=== PATIENT | female | born 1955 | race Caucasian/White ===

== ENCOUNTER → 2017-12-05 | Outpatient (REF) | payer OTHER ==
[2017-12-08 14:12] LABS: HPV HYBRID CAPTURE II Negative (Negative)
== END ==
LOC: M SFHCWAGY 15:35
DX: Z12.4 Encounter for screening for malignant neoplasm of cervix (principal)
CPT/HCPCS: G0123

== ENCOUNTER → 2017-12-05 | Outpatient (CLI) | payer OTHER | LOC: M WHC 15:05 | DX: Z12.31 Encounter for screening mammogram for malignant neoplasm of breast (principal); Z78.0 Asymptomatic menopausal state | CPT/HCPCS: 77067 ==

== ENCOUNTER → 2018-11-13 | Outpatient (REF) | payer MEDICARE, OTHER ==
[2018-11-13 18:31] LABS: ALBUMIN 3.9 GM/DL (3.2-5.2); ALT/SGPT 17 U/L (12-78); BILIRUBIN,TOTAL 0.5 MG/DL (0.2-1.0); BLOOD UREA NITROGEN 20 MG/DL (7-18); CARBON DIOXIDE LEVEL 27 MEQ/L (21-32); CHLORIDE LEVEL 107 MEQ/L (98-107); CHOLESTEROL LEVEL 237 MG/DL (<200); CHOLESTEROL RISK RATIO 3.885 (<5); CREATININE FOR GFR 0.75 MG/DL (0.55-1.30); GLOMERULAR FILTRATION RATE > 60.0 (>45); GLUCOSE, FASTING 76 MG/DL (70-100); HDL CHOLESTEROL 61 MG/DL (>40); LDL CHOLESTEROL 153 MG/DL (<100); NON-HDL-C 176 MG/DL; POTASSIUM SERUM 4.4 MEQ/L (3.5-5.1); SODIUM LEVEL 140 MEQ/L (136-145); TOTAL PROTEIN 6.9 GM/DL (6.4-8.2); TRIGLYCERIDES LEVEL 115 MG/DL (<150)
[2018-11-13 18:39] LABS: TOTAL 25(OH) VITAMIN D 25.7 NG/ML (30.0-100.0)
== END ==
LOC: M LABDRAW1 17:06
PROVIDERS: ATTEND Nurse Practitioner Family
DX: E78.2 Mixed hyperlipidemia (principal); E55.9 Vitamin D deficiency, unspecified

== ENCOUNTER → 2018-12-11 | Outpatient (REF) | payer MEDICARE, OTHER | LOC: M SFHCPLAZ 16:47 | PROVIDERS: ATTEND Nurse Practitioner Family | DX: Z28.3 Underimmunization status (principal) ==

== ENCOUNTER → 2019-02-12 | Outpatient (CLI) | payer MEDICARE, OTHER ==
--- NOTE | 2019-02-12 12:32 | REPMRS ---
Patient History The patient states she had a clinical breast exam in 02/2019. Patient is postmenopausal. Family history of pancreatic cancer at age 50 or over in father, colorectal cancer at age 50 or over in maternal grandfather. No Hormone Replacement Therapy 3D TOMOSYNTHESIS WAS PERFORMED. [facility] for [facility] cancer [facility] 7.1%. Digital Woman Screen Mammo: February 12, 2019 - Exam #: [id number] Bilateral CC and MLO view(s) were taken. Technologist: Martha Beverly, Technologist Prior study comparison: December 05, 2017, digital woman screen mammo performed at [facility]. October 06, 2014, digital woman screen mammo performed at [facility]. FINDINGS: The breast tissue is heterogeneously dense. This may lower the sensitivity of mammography. There has been no change in the appearance of the mammogram from the prior studies. There is a moderate amount of residual fibroglandular tissue which is fairly symmetric. There is no interval development of dominant mass, areas of architectural distortion, or clustered microcalcification typical of malignancy. Assessment: BI-RADS/ACR category 1 mammogram. Negative Mammogram. Recommendation Routine screening mammogram in 1 year (for women over age 40). This mammogram was interpreted with the aid of an FDA-approved computer-aided dectection system. Electronically Signed By: Roel Wong MD 02/12/19 2423
--- NOTE | 2019-02-20 08:38 | DEXA ---
AP SPINE L1 - L4 0.940 -2.1 -0.5 LT FEMUR TOTAL 0.873 -1.1 0.1 LT NECK 0.856 -1.3 0.2 RT FEMUR TOTAL 0.811 -1.6 -0.4 RT NECK 0.815 -1.6 -0.1 TOTAL BODY TOTAL OTHER COMMENTS: There is low bone density of the spine and hips. The decreased density of the spine does not represent a significant change. The decreased density of the left hip does represent a significant change. The decreased density of the right hip does represent a significant change. The density of the spine has increased 4.6% since the initial exam on 10/13/2006. The spine density has decreased 0.7% since the most recent exam on 02/08/2010. The density of the left hip has decreased 5.3% since the initial exam on 10/13/2006. The density of the left hip has decreased 3.5% since the most recent exam on 02/08/2010. The density of the right hip has decreased 11.4% since the initial exam on 10/13/2006. The density of the right hip has decreased 13.7% since the most recent exam on 02/08/2010. FOLLOW-UP: Recommendation for the next bone density exam: 2 years. JOSE MANUEL
== END ==
LOC: M WHC 10:59
PROVIDERS: ATTEND Nurse Practitioner Family
DX: Z01.419 Encounter for gynecological examination (general) (routine) without abnormal findings (principal); Z12.31 Encounter for screening mammogram for malignant neoplasm of breast; N95.9 Unspecified menopausal and perimenopausal disorder; Z78.0 Asymptomatic menopausal state; Z80.49 Family history of malignant neoplasm of other genital organs
CPT/HCPCS: 77063; 77067; 77080; G0101

== ENCOUNTER → 2019-09-03 | Outpatient (REF) | payer OTHER ==
[2019-09-03 12:30] LABS: ALBUMIN 4.2 GM/DL (3.2-5.2); ALT/SGPT 19 U/L (12-78); BILIRUBIN,TOTAL 0.5 MG/DL (0.2-1.0); BLOOD UREA NITROGEN 20 MG/DL (7-18); CALCIUM LEVEL 10.7 MG/DL (8.8-10.2); CARBON DIOXIDE LEVEL 30 MEQ/L (21-32); CHLORIDE LEVEL 103 MEQ/L (98-107); CHOLESTEROL LEVEL 262 MG/DL (<200); CHOLESTEROL RISK RATIO 4.093 (<5); CREATININE FOR GFR 0.86 MG/DL (0.55-1.30); FREE T4 1.01 NG/DL (0.76-1.46); GLOMERULAR FILTRATION RATE > 60.0 (>45); GLUCOSE, FASTING 95 MG/DL (70-100); HDL CHOLESTEROL 64 MG/DL (>40); LDL CHOLESTEROL 175 MG/DL (<100); NON-HDL-C 198 MG/DL; SODIUM LEVEL 140 MEQ/L (136-145); TOTAL 25(OH) VITAMIN D 48.9 NG/ML (30.0-100.0); TOTAL PROTEIN 7.1 GM/DL (6.4-8.2); TRIGLYCERIDES LEVEL 115 MG/DL (<150)
== END ==
LOC: M SFHCPLAZ 10:25
PROVIDERS: ATTEND Nurse Practitioner Family
DX: F32.9 Major depressive disorder, single episode, unspecified (principal); E55.9 Vitamin D deficiency, unspecified; E78.2 Mixed hyperlipidemia
CPT/HCPCS: 36415; 80053; 80061; 82306; 84439; 84443; G0463

== ENCOUNTER → 2019-09-23 | Outpatient (REF) | payer OTHER ==
[2019-09-23 13:03] LABS: ALBUMIN 3.9 GM/DL (3.2-5.2); ALT/SGPT 18 U/L (12-78); BILIRUBIN,TOTAL 0.4 MG/DL (0.2-1.0); BLOOD UREA NITROGEN 27 MG/DL (7-18); CALCIUM LEVEL 10.1 MG/DL (8.8-10.2); CARBON DIOXIDE LEVEL 30 MEQ/L (21-32); CHLORIDE LEVEL 108 MEQ/L (98-107); CREATININE FOR GFR 0.82 MG/DL (0.55-1.30); GLOMERULAR FILTRATION RATE > 60.0 (>45); GLUCOSE, FASTING 106 MG/DL (70-100); SODIUM LEVEL 142 MEQ/L (136-145); TOTAL PROTEIN 6.3 GM/DL (6.4-8.2)
[2019-09-23 15:52] LABS: PTH INTACT 164.2 PG/ML (18.5-88.0)
== END ==
LOC: M SFHCPLAZ 10:29
PROVIDERS: ATTEND Nurse Practitioner Family
DX: E83.52 Hypercalcemia (principal)
CPT/HCPCS: 36415; 80053; 83970; G0463

== ENCOUNTER → 2019-10-08 | Outpatient (REF) | payer OTHER ==
[2019-10-08 16:28] LABS: CALCIUM, URINE 16.8 MG/DL
== END ==
LOC: M SFHCPLAZ 15:14
PROVIDERS: ATTEND Nurse Practitioner Family
DX: E21.0 Primary hyperparathyroidism (principal)

== ENCOUNTER → 2020-05-06 | Outpatient (CLI) | payer OTHER ==
--- NOTE | 2020-05-06 13:10 | REPMRS ---
Patient History The patient states she had a clinical breast exam in April 2020. Family history of pancreatic cancer at age 50 or over in father, colorectal cancer at age 50 or over in maternal grandfather. No Hormone Replacement Therapy 3D TOMOSYNTHESIS WAS PERFORMED. [facility] VOLPARA DENSITY B. Digital Woman Screen Mammo: May 06, 2020 - Exam #: [id number] Bilateral CC and MLO view(s) were taken. Technologist: Shadia Moore, Technologist Prior study comparison: February 12, 2019, bilateral digital woman screen mammo performed at [facility]. December 05, 2017, digital woman screen mammo performed at [facility]. FINDINGS: There are scattered fibroglandular densities. There has been no change in the appearance of the mammogram from the prior studies. There is a mild amount of residual fibroglandular tissue which is fairly symmetric. There is no interval development of dominant mass, architectural distortion, or clustered microcalcification suggestive of malignancy. Assessment: BI-RADS/ACR category 1 mammogram. Negative Mammogram. Recommendation Routine screening mammogram in 1 year (for women over age 40). This mammogram was interpreted with the aid of an FDA-approved computer-aided dectection system. Electronically Signed By: Roel Wong MD 05/06/20 [id number]
== END ==
LOC: M WHC 10:44
PROVIDERS: ATTEND Nurse Practitioner Family
DX: Z01.419 Encounter for gynecological examination (general) (routine) without abnormal findings (principal); Z12.31 Encounter for screening mammogram for malignant neoplasm of breast; E21.0 Primary hyperparathyroidism; F32.9 Major depressive disorder, single episode, unspecified
CPT/HCPCS: 36415; 77063; 77067; 81001; 83970; 84439; 84443; G0101

== ENCOUNTER → 2020-05-06 | Outpatient (CLI) | payer OTHER ==
[2020-05-06 13:53] LABS: FREE T4 0.97 NG/DL (0.76-1.46); PTH INTACT 175.1 PG/ML (18.5-88.0); THYROID STIMULATING HORMONE 1.07 uIU/ML (0.358-3.740)
[2020-05-06 14:01] LABS: APPEARANCE, URINE CLEAR (CLEAR); BACTERIA, URINE AUTO NEGATIVE (NEGATIVE); BILIRUBIN, URINE AUTO NEGATIVE (NEGATIVE); BLOOD, URINE BLOOD 1+ (NEGATIVE); COLOR, URINE YELLOW (YELLOW); GLUCOSE, URINE (UA) AUTO NEGATIVE (NEGATIVE); KETONE, URINE AUTO NEGATIVE (NEGATIVE); LEUKOCYTE ESTERASE, URINE AUTO NEGATIVE (NEGATIVE); MUCUS, URINE SMALL (NEGATIVE); NITRITE, URINE AUTO NEGATIVE (NEGATIVE); PROTEIN, URINE AUTO NEGATIVE (NEGATIVE); RBC, URINE AUTO 2 /HPF (0-3); SPECIFIC GRAVITY URINE AUTO 1.014 (1.002-1.035); SQUAMOUS EPITHELIAL CELL UR AU 0 /HPF (0-6); UROBILINOGEN, URINE AUTO 0.2 mg/dL (0.0-2.0); WBC, URINE AUTO 0 /HPF (0-3)
== END ==
LOC: M PLALAB 11:37
PROVIDERS: ATTEND Nurse Practitioner Family
DX: E21.0 Primary hyperparathyroidism (principal); F32.9 Major depressive disorder, single episode, unspecified

== ENCOUNTER → 2020-06-08 | Outpatient (REF) | payer OTHER ==
[2020-06-08 14:48] LABS: ALT/SGPT 17 U/L (12-78); BILIRUBIN,TOTAL 0.4 MG/DL (0.2-1.0); BLOOD UREA NITROGEN 20 MG/DL (7-18); CALCIUM LEVEL 10.2 MG/DL (8.8-10.2); CARBON DIOXIDE LEVEL 30 MEQ/L (21-32); CHLORIDE LEVEL 108 MEQ/L (98-107); CHOLESTEROL LEVEL 221 MG/DL (<200); CHOLESTEROL RISK RATIO 3.877 (<5); CREATININE FOR GFR 0.77 MG/DL (0.55-1.30); GLOMERULAR FILTRATION RATE > 60.0 (>45); GLUCOSE, FASTING 78 MG/DL (70-100); HDL CHOLESTEROL 57 MG/DL (>40); LDL CHOLESTEROL 141 MG/DL (<100); NON-HDL-C 164 MG/DL; POTASSIUM SERUM 4.4 MEQ/L (3.5-5.1); SODIUM LEVEL 142 MEQ/L (136-145); TOTAL PROTEIN 6.8 GM/DL (6.4-8.2); TRIGLYCERIDES LEVEL 116 MG/DL (<150)
[2020-06-08 14:53] LABS: TOTAL 25(OH) VITAMIN D 44.9 NG/ML (30.0-100.0)
== END ==
LOC: M SFHCPLAZ 12:18
PROVIDERS: ATTEND Nurse Practitioner Family
DX: E78.2 Mixed hyperlipidemia (principal); E55.9 Vitamin D deficiency, unspecified; Z23 Encounter for immunization
CPT/HCPCS: 36415; 80053; 80061; 82306; 90682; G0008; G0463

== ENCOUNTER → 2020-08-26 | Outpatient (REF) | payer OTHER ==
[2020-08-26 11:19] LABS: BLOOD UREA NITROGEN 15 MG/DL (7-18); CARBON DIOXIDE LEVEL 28 MEQ/L (21-32); CHLORIDE LEVEL 109 MEQ/L (98-107); CHOLESTEROL LEVEL 248 MG/DL (<200); CHOLESTEROL RISK RATIO 4.509 (<5); CREATININE FOR GFR 0.76 MG/DL (0.55-1.30); GLOMERULAR FILTRATION RATE > 60.0 (>45); GLUCOSE, FASTING 83 MG/DL (70-100); HDL CHOLESTEROL 55 MG/DL (>40); LDL CHOLESTEROL 156 MG/DL (<100); NON-HDL-C 193 MG/DL; POTASSIUM SERUM 4.1 MEQ/L (3.5-5.1); SODIUM LEVEL 142 MEQ/L (136-145); TRIGLYCERIDES LEVEL 186 MG/DL (<150)
[2020-08-26 11:25] LABS: TOTAL 25(OH) VITAMIN D 32.1 NG/ML (30.0-100.0)
[2020-08-26 11:26] LABS: PTH INTACT 172.7 PG/ML (18.5-88.0)
== END ==
LOC: M PLALAB 08:48
PROVIDERS: ATTEND Family Medicine
DX: E78.2 Mixed hyperlipidemia (principal); E21.0 Primary hyperparathyroidism; E55.9 Vitamin D deficiency, unspecified

== ENCOUNTER → 2020-09-30 | Outpatient (CLI) | payer OTHER ==
[~2020-09-30] MED LIST: DRIS50003 PO; DULO1CAP5; DULO1CAP6
[2020-09-30 13:38] LABS: HEMATOCRIT 40.4 % (36.0-47.0); MEAN CORPUSCULAR HEMOGLOBIN 30.2 pg (27.0-33.0); MEAN CORPUSCULAR HGB CONC 32.2 g/dl (32.0-36.5); MEAN CORPUSCULAR VOLUME 93.7 fl (80.0-96.0); PLATELET COUNT, AUTOMATED 238 10^3/uL (150-450); RED BLOOD COUNT 4.31 10^6/uL (4.00-5.40); WHITE BLOOD COUNT 7.8 10^3/uL (4.0-10.0)
[2020-09-30 13:47] LABS: INR 0.96
[2020-09-30 14:03] LABS: ALBUMIN 3.8 GM/DL (3.2-5.2); ALT/SGPT 19 U/L (12-78); BILIRUBIN,TOTAL 0.3 MG/DL (0.2-1.0); BLOOD UREA NITROGEN 17 MG/DL (7-18); CALCIUM LEVEL 10.5 MG/DL (8.8-10.2); CARBON DIOXIDE LEVEL 27 MEQ/L (21-32); CHLORIDE LEVEL 107 MEQ/L (98-107); CREATININE FOR GFR 0.83 MG/DL (0.55-1.30); GLOMERULAR FILTRATION RATE > 60.0 (>45); GLUCOSE, FASTING 85 MG/DL (70-100); SODIUM LEVEL 141 MEQ/L (136-145); TOTAL PROTEIN 6.4 GM/DL (6.4-8.2)
[2020-09-30 14:58] LABS: ERYTHROCYTE SEDIMENTATION RATE 13 mm/hr (0-30)
--- NOTE | 2020-09-30 18:34 | REP ---
INDICATION: LT KNEE OSEOARTHRITIS LAB 1ST XR 2ND COMPARISON: None. TECHNIQUE: PA and lateral. FINDINGS: Mediastinum and cardiac silhouette are normal. Lung valerio demonstrate presumed chronic primarily basilar changes. Subtle atelectasis cannot be excluded. No discrete focal consolidation, effusion, or pneumothorax. Skeletal structures demonstrate osteopenia and degenerative changes. IMPRESSION: Relatively chronic appearing changes although subtle basilar atelectasis cannot be excluded. <Electronically signed by Monroe Upton > 09/30/20 [id number]
== END ==
LOC: M LAB 12:30
PROVIDERS: ATTEND Orthopaedic Surgery
DX: Z01.818 Encounter for other preprocedural examination (principal); M17.12 Unilateral primary osteoarthritis, left knee
CPT/HCPCS: 36415; 71046; 80053; 85027; 85610; 85652; U0003

== ENCOUNTER → 2020-09-30 | Outpatient (CLI) | payer OTHER | LOC: M LABSMTC 12:07 | PROVIDERS: ATTEND Anesthesiology | DX: Z01.812 Encounter for preprocedural laboratory examination (principal); Z20.822 Contact with and (suspected) exposure to COVID-19 ==

== ENCOUNTER 2020-10-05 08:51 | Inpatient (IN) | payer OTHER ==
--- NOTE | 2020-09-28 17:54 | HPE ---
HISTORY AND PHYSICAL DATE OF ANTICIPATED ADMISSION: 10/05/2020 ATTENDING: Dr. Saul Cruz ADMITTING DIAGNOSIS: Osteoarthritis, left knee. HISTORY: This is a 65-year-old female patient with progressively worsening left knee pain and stiffness. She failed to improve with conservative management. She has elected for a knee replacement on the left side. She has pain with weightbearing activities and activities of daily living. She has been consented by Dr. Cruz for a left total knee arthroplasty. X-rays notable for tricompartmental degenerative changes of the left knee. Medical optimization with Dr. Jama. ALLERGIES: No known drug allergies. CURRENT MEDICATIONS: - duloxetine 30 mg in the morning, 60 mg in the evening - Drisdol 1250 mcg one time every 2 weeks MEDICAL HISTORY: 1. Depression. 2. Symptomatic osteoarthritis of the left knee. 3. Gastric reflux disease that she treats with diet. 4. Vitamin D deficiency 5. Osteopenia. SURGICAL HISTORY: None. FAMILY HISTORY: Cancer, otherwise unremarkable. SOCIAL HISTORY: She does not smoke. She does not use alcohol. She is self-employed. REVIEW OF SYSTEMS: Denies fever or chills. Denies chest pain, shortness of breath, or cough. Denies difficulty breathing. Denies abdominal pain. Denies nausea or vomiting. Denies exposure to COVID-19. Notes persistent pain in her left knee with weightbearing activities and activities of daily living. Exam today reveals a well-nourished, well-developed female patient. She ambulates with a limping gait. She favors her left side. Exam of the left knee reveals skin to be intact. Tenderness mainly medially. The calf is soft, nontender to palpation. Range of motion is full. No irritability with hip range of motion. Neck is supple without adenopathy or jugular venous distention (JVD). Lungs are clear to auscultation without rales or wheeze. Heart: Regular rate and rhythm. Abdomen: Bowel sounds are present. Height 65 inches, weight 156 pounds, temperature 97.3, blood pressure 132/80, pulse 64, respirations 16. LABORATORY DATA: Not present for review. EKG notable for sinus rhythm. Chest x-ray not present for review. IMPRESSION: Symptomatic osteoarthritis of the left knee, consented by Dr. Cruz for a left total knee arthroplasty. PLAN: We reviewed her preoperative and postoperative instructions. She does have a total joint booklet to review as well. She understands the COVID restrictions for visitation. Also she understands after COVID testing she should self-quarantine. We went over nonsteroidal anti-inflammatory drugs (NSAIDs), not to use those 5 days prior to surgery, and what NSAIDs are. We went over nothing by mouth after midnight and what that means. All of her questions were answered. edited: 10/01/2020 0949 shaggy RICHARD
[~2020-10-05] VITALS: Ht 162.6 cm; Wt 67.5 kg
[~2020-10-05 08:51] MED LIST changes: +ACETAMINOPHEN 500 MG TAB PO ONE; +LIDOCAINE 1% MDV 20ML VIAL SQ PRN; +LR 1,000 ML IV ONE; +MIDAZOLAM INJ 2MG/2ML VIAL (J2250 PER 1MG) IV PRN; +ceFAZolin SOD 2 GM in IV 1 EA IV ONE; +fentaNYL 100 MCG/2 ML INJECTION (J3010) IV PRN
--- OUTSIDE RECORDS SUMMARY | 2020-10-05 08:57 | CCD | Continuity of Care Document ---
Author Author Ruth LUKE PA-C Organization Unknown Address [address] [address] Phone [phone] Care Team Providers Care Rules Examiner Name Role Phone Jania Flores KAY AUTM [phone] Problems Description No Information Available Social History Type Date Description Comments Sex Unknown ETOH Use Denies alcohol use Tobacco Use Start: Unknown Patient has never smoked Allergies, Adverse Reactions, Alerts Description No Known Drug Allergies Medications Active Medications SIG Qnty Indications Ordering Provide r Date Cymbalta 60mg Caps DR Part 1 by mouth every day Unknown Aleve 220mg Capsules as neede d Unknown Immunizations Description No Information Available Vital Signs Date Vital Result Comment 08/26/2020 8:20am Body Temperature 97.1 F 08/17/2020 10:30am Body Temperature 96.4 F Height 65 inches 5'5" Weight 152.00 lb BMI (Body Mass Index) 25.3 kg/m2 Results Description No Information Available Procedures Date Code Description Status 08/26/2020 17208 X-Ray Knee Ap & Lateral W/Obliqu es Three Views Completed Medical Devices Description No Information Available Encounters Type Date Location Provider Dx Diagnosis Office Visit 08/26/2020 8:00a Catrachito Ching MD M1 7.12 Unilateral primary osteoarthritis, left knee Office Visit 08/17/2020 10:30a Catrachito Luke PA-C M1 7.12 Unilateral primary osteoarthritis, left knee Assessments Date Code Description Provider 08/26/2020 M17.12 Unilateral primary osteoarthriti s, left knee Kimmy Ching MD 08/17/2020 M17.12 Unilateral primary osteoarthriti s, left knee ANNE MARIE PendletonC Plan of Treatment 08/26/2020 - Kimym Ching MD* M17.12 Unilateral primary osteoarthritis, left knee* New Orders:* Surgery, Ordered: 08/26/20 * Follow up:* post op Functional Status Description No Information Available Mental Status Description No Information Available Referrals Description No Information Available
--- OUTSIDE RECORDS SUMMARY | 2020-10-05 08:57 | CCD ---
Author Author [facility] Organization [facility] Address Unknown Phone Unavailable Care Team Providers Care Environmental Field Team Member Name Role Phone Sweta Jama Unavailable PROBLEMS Type Condition ICD9-CM Code INN18-GZ Code Onset Dates Condition S tatus SNOMED Code Notes Problem Overweight E66.3 Active 745447491 Problem Mixed hyperlipidemia E78.2 Active 525113439 Problem Depression F32.9 Active 20683791 Problem Other seborrheic keratosis L82.1 Active 06154 8000 several noninflamed mary anne k's Problem Hypercalcemia E83.52 Active 80440362 Problem Gastroesophageal reflux disease without esophagitis K21.9 Active 542426768 Problem Hyperparathyroidism, primary E21.0 Active 363 08168 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 Active 35364139 improving Problem Vitamin D deficiency E55.9 Active 08570119 Problem Decreased hearing of both ears H91.93 Active 1 67984566 Problem Dyspareunia in female N94.10 Active 57648688 Problem Menopausal disorder N95.9 Active 741096724 ALLERGIES No Known Allergies ENCOUNTERS from 1955 to 2020-08-20 Encounter Location Date Provider Diagnosis [address] [address] Aug, Sweta Jama Hyperparathyroidism, primary E21.0 ; Vit cottrell D deficiency E55.9 ; Mixed hyperlipidemia E78.2 and Depression F32.9 IMMUNIZATIONS Vaccine Route Administration Date Status Influenza (Pharmacy Given) Unknown Jul 12, 2019 Admin istered Influenza (18 yrs & older) Flublok IM Intramuscular Jun 08, 2020 Administered Pneumococcal 0.5mL (Prevnar 13) IM Intramuscular December 11, 2018 Administered Influenza (6mo & up) Fluzone IM Intramuscular Jun 20, 2017 Ad ministered Influenza (6mo & up) Fluzone IM Intramuscular Aug 16, 2016 Ad ministered Influenza (6mo & up) Fluzone Unknown Jun 09, 2015 Adm inistered Influenza (6mo & up) Fluzone IM Intramuscular Aug 18, 2014 Ad ministered Influenza (6mo & up) Fluzone IM Intramuscular Jun 06, 2013 Ad ministered Influenza (6mo & up) Fluzone IM Intramuscular Apr 30, 2012 Ad ministered SOCIAL HISTORY Tobacco Use: Social History Observation Description Date Details (start date - stop date) Never Smoker Sex Assigned At : Social History Observation Description Sex Assigned At Unknown Education: Question Answer Notes Level of Education: College 4 years college Audit Question Answer Notes Total Score: 0 Interpretation: Alcohol Education Language: Question Answer Notes Languages spoken: Senegalese Mu-Ism: Question Answer Notes Mu-Ism 21 Rastafari Sexual Hx: Question Answer Notes Had sex in the last 12 months (vaginal, oral, or anal)? Yes Have you ever had an STD? No Prevention Strategies discussed: Other with Men only Use protection? No Drug and Alcohol Question Answer Notes Total Score: 0 Interpretation: No problems reported Alcohol Screening: Question Answer Notes Did you have a drink containing alcohol in the past year? No Points 0 Interpretation Negative Tobacco Use: Question Answer Notes Are you a: never smoker never smoker REASON FOR REFERRAL No Information VITAL SIGNS Weight 158 lbs Aug, Height 64 in Aug, BMI 27.12 kg/m2 Aug, Heart Rate 82 /min Aug, Respiratory Rate 18 /min Aug, Temperature 96.4 degrees Fahrenheit Aug, Oximetry 97 Aug, Blood pressure systolic 112 mm Hg Aug, Blood pressure diastolic 80 mm Hg Aug, MEDICATIONS Medication SIG (Take, Route, Frequency, Duration) Notes Start Da te End Date Status Ibuprofen 200 MG 1 tablet Orally as needed for 30 day(s) Active Intrarosa 6.5 MG 1 vaginal _insert at bedtime Vaginal Onc e a day for 30 day(s) Nov, Not-Taking Drisdol 27989 UNIT 1 capsule with meal Orally Once every 2 weeks Active Duloxetine HCl 30 MG TAKE 1 CAPSULE EVERY DAY Active Multi Vitamin Daily - 1 tablet Orally Once a day for 30 day(s) Active Duloxetine HCl 60 MG 1 capsule Orally before bedtime daily (with 30mg in AM) Active PROCEDURES No Information RESULTS No Results REASON FOR VISIT ACO patient; follow up after labs MEDICAL (GENERAL) HISTORY Type Description Date Medical History Depression Medical History High cholesterol - mixed hyperlipidemia Medical History Vitamin D deficiency Medical History Gastroesophageal reflux disease without esophagitis Medical History Osteopenia - Frax major/hip fx risk 9.2/ 1.3 on Dexa 02/2019 Surgical History tubal ligation 93 Surgical History hysteroscopy, D&C -Sera 01/13 Surgical History D&C 92 Surgical History colonoscopy with 1 diverticuluum - Dr Ahmet hunter 09/21 Surgical History rectal fissure 92 Goals Section No Information Health Concerns No Information MEDICAL EQUIPMENT No Information MENTAL STATUS No Information FUNCTIONAL STATUS No Information ASSESSMENTS Encounter Date Diagnosis Assessment Notes Treatment Notes Treatm ent Clinical Notes Aug, Hyperparathyroidism, primary (ICD-10 - E21.0) Recheck Ca and PTH; monitor bone density at recommended intervals. Aug, Vitamin D deficiency (ICD-10 - E55.9) Recheck. Aug, Mixed hyperlipidemia (ICD-10 - E78.2) Not on a statin; recheck. Aug, Depression (ICD-10 - F32.9) Feels depression is fairly well controlled on duloxetine; declines referral for psychotherapy. PLAN OF TREATMENT Medication Medication Name Sig Start Date Stop Date Duloxetine HCl 60 MG 1 capsule Orally before bedtime daily (with 30mg in AM) Duloxetine HCl 30 MG TAKE 1 CAPSULE EVERY DAY Drisdol 63504 UNIT 1 capsule with meal Orally Once every 2 week s Treatment Notes Assessment Notes Clinical Notes Hyperparathyroidism, primary Recheck Ca and PTH; monitor bone density at recommended intervals. Vitamin D deficiency Recheck. Mixed hyperlipidemia Not on a statin; re check. Depression Feels depression is fairly well controlled on duloxetine; declines referral for psychotherapy. Future Test Test Name Order Date LIPID PANEL (CARDIAC RISK) 20200819 Basic Metabolic Profile (BMP) 20200819 PTH INTACT 20200819 VITAMIN D 25-HYDROXY 20200819 Next Appt Details with David Flores in 6 months Reason:AWV Provider Name:Jania Flores, 2021-02-17 10:3 0:00 AM, [address] [place], [address], Follow Up:with David Flores in 6 monthsAWV Insurance Providers Payer Name Payer Address Payer Phone Insured Name Patient Relati onship to Insured Coverage Start Date Coverage End Date DAVON SHEA [address] [address] [facility] [id number] SHAKEEL COLEMAN self
--- OUTSIDE RECORDS SUMMARY | 2020-10-05 08:57 | CCD | Continuity of Care Document ---
Author Author Ruth SYKES P.A. Organization Unknown Address [address] [place] [address] Phone [phone] Care Team Providers Care Beam Dyer Recessed Vat Name Role Phone Jania Flores KAY AUTM [phone] Problems Description No Information Available Social History Type Date Description Comments Sex Unknown ETOH Use Denies alcohol use Tobacco Use Start: Unknown Patient has never smoked Allergies, Adverse Reactions, Alerts Description No Known Drug Allergies Medications Active Medications SIG Qnty Indications Ordering Provide r Date Hibiclens 4% Liquid use in shower once daily for 5 days before surgery 1units Kimmy valle MD 09/22/2020 Mupirocin 2% Ointment apply a pea sized amount to the nasal passages 3 times a day for 5 days prior to surgery 22gm Kimmy Ching MD 09/22/[address] Part 1 by mouth every day Unknown Aleve 220mg Capsules as neede d Unknown Immunizations Description No Information Available Vital Signs Date Vital Result Comment 09/28/2020 4:59pm BP Systolic 132 mmHg BP Diastolic 80 mmHg Heart Rate 64 /min Body Temperature 97.3 F Height 65 inches 5'5" Weight 156.00 lb BMI (Body Mass Index) 26.0 kg/m2 Respiratory Rate 17 /min 08/26/2020 8:20am Body Temperature 97.1 F Results Test Acquired Date Facility Test Result H/L Range Note Prothrombin Time/Inr 09/30/2020 [facility] entr [address] [place] [address] [phone])- - Prothrombin Time 13.0 seconds Normal 12.5-14.3 Inr 0.96 Normal 1 Comprehensive Metabolic Profil 09/30/2020 [facility] [address] [place] [address] (315)- - Glucose, Fasting 85 mg/dL Normal 70-100 Blood Urea Nitrogen 17 mg/dL Normal 7-18 Creatinine For GFR 0.83 mg/dL Normal 0.55-1.30 Glomerular Filtration Rate > 60.0 Normal >45 2 Sodium Level 141 mEq/L Normal 136-145 Potassium Serum 4.0 mEq/L Normal 3.5-5.1 Chloride Level 107 mEq/L Normal 98-107 Carbon Dioxide Level 27 mEq/L Normal 21-32 Anion Gap 7 mEq/L Low 8-16 Calcium Level 10.5 mg/dL High 8.8-10.2 Ast/Sgot 10 U/L Normal 7-37 Alt/SGPT 19 U/L Normal 12-78 Alkaline Phosphatase 141 U/L High 45-117 Bilirubin,Total 0.3 mg/dL Normal 0.2-1.0 Total Protein 6.4 GM/DL Normal 6.4-8.2 Albumin 3.8 GM/DL Normal 3.2-5.2 Albumin/Globulin Ratio 1.5 Normal 1.2-2.2 Complete Blood Count 09/30/2020 [facility] entr [address] [place] [address] (315)- - White Blood Count 7.8 10 Normal 4.0-10.0 Red Blood Count 4.31 10 Normal 4.00-5.40 Hemoglobin 13.0 g/dL Normal 12.0-15.5 Hematocrit 40.4 % Normal 36.0-47.0 Mean Corpuscular Volume 93.7 fl Normal 80.0-96.0 Mean Corpuscular Hemoglobin 30.2 pg Normal 27.0-33.0 Mean Corpuscular HGB Conc 32.2 g/dL Normal 32.0-36.5 Red Cell Distribution Width 12.5 % Normal 11.5-14.5 Platelet Count, Automated 238 10 Normal 150-450 Nucleated Red Blood Cell % 0.0 % Normal 0-0 Laboratory test finding 09/30/2020 [facility] [address] [place] [address] (021)- - Erythrocyte Sedimentation Rate 13 mm/hr Normal 0-30 Laboratory test finding 09/03/2020 [facility] [address] [place] [address] (315)- - Erythrocyte Sedimentation Rate <pending> Xray 09/03/2020 [facility] (315)- - Chest x-ray <pending> Order 09/03/2020 [facility] Surgery <pending> Order 09/03/2020 [facility] EKG <pending> 1 THERAPUTIC HUMAN INR VALUES INDICATIONS NORMAL RANGES PROPHYLAXIS/TREATMENT OF: VENOUS THROMBOSIS 2.0-3.0 PULMONARY EMBOLISM 2.0-3.0 PREVENTION OF SYSTEMIC EMBOLISM FROM: TISSUE HEART VALVES 2.0-3.0 ACUTE MYOCARDIAL INFARCTION 2.0-3.0 VALVULAR HEART DISEASE 2.0-3.0 ATRIAL FIBRILLATION 2.0-3.0 MECHANICAL VALVES(HIGH RISK) 2.5-3.5 RECURRENT MYOCARDIAL INFARCTION 2.5-3.5 2 Units are mL/min/1.73 m2 Chronic Kidney Disease Staging per NKF: Stage I & II GFR >=60 Normal to Mildly Decreased Stage III GFR 30-59 Moderately Decreased Stage IV GFR 15-29 Severely Decreased Stage V GFR <15 Very Little GFR Left ESRD GFR <15 on CREDIT UNION TELLER Procedures Date Code Description Status 08/26/2020 99210 X-Ray Knee Ap & Lateral W/Obliqu es Three Views Completed Medical Devices Description No Information Available Encounters Type Date Location Provider Dx Diagnosis Office Visit 09/28/2020 5:30p [facility] Z01.818 Encounter for other preprocedural examination M17.12 Unilateral primary osteoarth ritis, left knee Office Visit 08/26/2020 8:00a Catrachito Ching MD M1 7.12 Unilateral primary osteoarthritis, left knee Office Visit 08/17/2020 10:30a [facility] Luke PA-C M1 7.12 Unilateral primary osteoarthritis, left knee Assessments Date Code Description Provider 09/28/2020 Z01.818 Encounter for other preprocedura l examination Steve Sykes, P.A. 09/28/2020 M17.12 Unilateral primary osteoarthriti s, left knee Steve Sykes PEleuterioA. 08/26/2020 M17.12 Unilateral primary osteoarthriti s, left knee Kimmy Ching MD 08/17/2020 M17.12 Unilateral primary osteoarthriti s, left knee Magalie Luke PA-C Plan of Treatment Future Appointment(s):* 10/19/2020 8:45 am - Kimmy Ching MD at [facility] * 10/05/2020 12:15 pm - [place] Gloria PA-C at Surgery [facility] * 10/05/2020 12:15 pm - Kimmy Ching MD at Surgery [facility] Functional Status Description No Information Available Mental Status Description No Information Available Referrals Refer to Dr Reason for Referral Status Appt Date Kendrick Ching MD SURGERY PER PIPER MAYS LEFT TOTAL KNEE([id number]) IS APPROVED FOR SAME DAY SURGERY . IF MORE TIME NEEDED HOSPITAL MUST CALL TO SURGERY NT--09/23/20 PER DMITRIY MAYS THIS IS GOOD FOR 1 DAY OF SERVICE Created [address] [facility], [address] [place] [address] [phone]
--- OUTSIDE RECORDS SUMMARY | 2020-10-05 08:57 | CCD ---
Author Author [facility] Organization [facility], a division of [employer] Address Unknown Phone Unavailable Care Team Providers Care Crop Or Livestock Tenant Farmer Name Role Phone Sweta Jama Unavailable PROBLEMS Type Condition ICD9-CM Code AEK20-TR Code Onset Dates Condition S tatus W/U Status Risk SNOMED Code Notes Problem Overweight E66.3 Active confirmed 616511121 Problem Depression F32.9 Active confirmed 51020964 Problem Vitamin D deficiency E55.9 Active confirmed 65792175 Problem Other seborrheic keratosis L82.1 Active confirmed 827179098 several noninflamed mary anne k's Problem Hyperparathyroidism, primary E21.0 Active confirme d 78493462 Problem Gastroesophageal reflux disease without esophagitis K21.9 Active confirmed 780430309 Problem Unilateral primary osteoarthritis, left knee M17.1 2 Active confirmed 523739100115605 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 Active confirmed 39187997 improving Problem Decreased hearing of both ears H91.93 Active confir med 462765236 Problem Dyspareunia in female N94.10 Active confirmed 67921251 Problem Menopausal disorder N95.9 Active confirmed 614216168 Problem Hypercalcemia E83.52 Active confirmed 298422 09 ALLERGIES No Known Allergies ENCOUNTERS from 1955 to 2020-09-17 Encounter Location Date Provider Diagnosis [address] [address] 04 Sep, 2020 Sweta Jama Pre-op evaluation Z01.818 ; Unilateral p rimary osteoarthritis, left knee M17.12 ; Hyperparathyroidism, primary E21.0 ; Depression F32.9 and Vitamin D deficiency E55.9 IMMUNIZATIONS Vaccine Route Administration Date Status Influenza [...] 4 years college Audit Question Answer Notes Interpretation: Alcohol Education Total Score: 0 Language: Question Answer Notes Languages spoken: Hebrew Hoahaoism: Question Answer Notes Hoahaoism 21 Buddhist Sexual Hx: Question Answer Notes Had sex in the last 12 months (vaginal, oral, or anal)? Yes Have you ever had an STD? No Prevention Strategies discussed: Other with Men only Use protection? No Drug and Alcohol Question Answer Notes Interpretation: No problems reported Total Score: 0 Alcohol Screening: Question Answer Notes Did you have a drink containing alcohol in the past year? No Points 0 Interpretation Negative Tobacco Use: Question Answer Notes Are you a: never smoker never smoker REASON FOR REFERRAL No Information VITAL SIGNS Weight 158 lbs Sep, Height 64 in Sep, BMI 27.12 kg/m2 Sep, Heart Rate 89 /min Sep, Respiratory Rate 18 /min Sep, Temperature 97.7 degrees Fahrenheit Sep, Oximetry 99 Sep, Blood pressure systolic 132 mm Hg Sep, Blood pressure diastolic 80 mm Hg Sep, MEDICATIONS Medication SIG (Take, Route, Frequency, Duration) Notes Start Da te End Date Status Intrarosa 6.5 MG 1 vaginal _insert at bedtime Vaginal Onc e a day for 30 day(s) Nov, Not-Taking Multi Vitamin Daily - 1 tablet Orally Once a day for 30 day(s) Active Ibuprofen 200 MG 1 tablet Orally as needed for 30 day(s) Active Duloxetine HCl 60 MG 1 capsule Orally before bedtime daily (with 30mg in AM) Active Drisdol 02336 UNIT 1 capsule with meal Orally Once every 2 weeks Active Duloxetine HCl 30 MG TAKE 1 CAPSULE EVERY DAY Active PROCEDURES No Information RESULTS No Results REASON FOR VISIT Preop clearance for left total knee replacement at [facility] on 10/05/[address] Rebecca brown; surgeon's fax [phone]; diagnosis code M17.12 MEDICAL (GENERAL) HISTORY Type Description Date Medical History Depression Medical History ASCVD risk 5.3% in 08/2020 Medical History Vitamin D deficiency Medical History [...] Notes Treatment Notes Treatm ent Clinical Notes Sep, Pre-op evaluation (ICD-10 - Z01.818) I discussed the risks vs. benefits of surgery with the patient in generic terms. I feel that the patient is at low risk for perioperative complications. ECG today shows NSR, unchanged from prior ECG 12/11/2018. Revised Cardiac Risk Index for Pre-Operative Risk score is 1. The patient knows that there is always some risk with surgery and that each individual has to make a decision regarding whether the benefits of surgery outweigh the risks in order to proceed. I advised the patient to direct further questions regarding the specifics of the proposed surgical procedure and specific risks to the surgeon. At this time I feel that the patient's acute and chronic medical conditions are sufficiently optimized to proceed with surgery. Advised on medications: - Stop vitamins 1 week prior to surgery - Stop NSAIDs 5 days prior to surgery - Continue duloxetine in the perioperative period. Sep, Unilateral primary osteoarthritis, left knee ( D-10 - M17.12) Surgery is planned. Sep, Hyperparathyroidism, primary (ICD-10 - E21.0) Sep, Depression (ICD-10 - F32.9) Sep, Vitamin D deficiency (ICD-10 - E55.9) PLAN OF TREATMENT Medication Medication Name Sig Start Date Stop Date Duloxetine HCl 60 MG 1 capsule Orally before bedtime daily (with 30mg in AM) Drisdol 31239 UNIT 1 capsule with meal Orally Once every 2 week s Duloxetine HCl 30 MG TAKE 1 CAPSULE EVERY DAY Treatment Notes Assessment Notes Clinical Notes Pre-op evaluation I discussed the risk s vs. benefits of surgery with the patient in generic terms. I feel that the patient is at low risk for perioperative complications. ECG today shows NSR, unchanged from prior ECG 12/11. Revised Cardiac Risk Index for Pre-Operative Risk score is 1. The patient knows that there is always some risk with surgery and that each individual has to make a decision regarding whether the benefits of surgery outweigh the risks in order to proceed. I advised the patient to direct further questions regarding the specifics of the proposed surgical procedure and specific risks to the surgeon. At this time I feel that the patient's acute and chronic medical conditions are sufficiently optimized to proceed with surgery.Advised on medications:- Stop vitamins 1 week prior to surgery- Stop NS AIDs 5 days prior to surgery- Continue duloxetine in the perioperative period. Unilateral primary osteoarthritis, left knee Surgery is planned. Treatment Notes Test Name Order Date ELECTROCARDIOGRAM, COMPLETE EKG 2020-09-16 Next Appt Details with David Flores as sched Reason: Provider Name:Jania Flores, 2021-02-17 10:3 0:00 AM, [address] [place], [address], Insurance Providers Payer Name Payer Address Payer Phone Insured Name Patient Relati onship to Insured Coverage Start Date Coverage End Date [facility] [id number] [facility] [address] [phone] SHAKEEL GASCA
--- OUTSIDE RECORDS SUMMARY | 2020-10-05 08:57 | CCD | Continuity of Care Document ---
Author Author Ruth VYAS P.A. Organization Unknown Address [address] [place] [address] Phone [phone] Care Team Providers Care Drum Tender Name Role Phone Jania FloresKulwinder AUTM [phone] Problems Description No Information Available Social History [...] Date Facility Test Result H/L Range Note Laboratory test finding 09[facility]03[facility] [address] [place] [address] (540)- - Erythrocyte Sedimentation Rate <pending> Xray 09/03/2020 [facility] nter (315)- - Chest x-ray <pending> Order 09/03/2020 [facility] nter Surgery <pending> Order 09/03/2020 [facility] nt EKG <pending> Procedures Date Code Description Status 08/26/2020 65836 X-Ray Knee Ap & Lateral W/Obliqu es Three Views Completed Medical Devices Description No Information Available Encounters Type Date Location Provider Dx Diagnosis Office Visit 08/[place]/2020 8[place] M1 7.12 Unilateral primary osteoarthritis, left knee Office Visit 08/17/2020 10[place]-C M1 7.12 Unilateral primary osteoarthritis, left knee Assessments Date Code Description Provider 08/26/2020 M17.12 Unilateral primary osteoarthriti s, left knee Kimmy Ching MD 08/17/2020 M17.12 Unilateral primary osteoarthriti s, left knee Magalie Luke PA-C Plan of Treatment Future Appointment(s):* 10/19/2020 8:45 am - Kimmy Ching MD at [place] * 10/05/2020 12:45 pm - [place] Gloria PA-C at Surgery [facility] * 10/05/2020 12:45 pm - Kimmy Ching MD at Surgery [facility] 08/26/2020 - Kimmy Ching MD* M17.12 Unilateral primary osteoarthritis, left knee* Follow up:* post op Functional Status Description No Information Available Mental Status Description No Information Available Referrals Refer to Dr Reason for Referral Status Appt Date Kendrick Ching MD SURGERY PER PIPER MAYS LEFT TOTAL KNEE(67529) IS APPROVED FOR SAME DAY SURGERY . IF MORE TIME NEEDED HOSPITAL MUST CALL TO SURGERY NT--09/23/20 PER DMITRIY MAYS THIS IS GOOD FOR 1 DAY OF SERVICE Created [address] [facility], [address] [place] [address] [phone]
--- OUTSIDE RECORDS SUMMARY | 2020-10-05 08:57 | CCD ---
Author Author [facility] Organization [facility] Address Unknown Phone Unavailable Care Team Providers Care Sfdc Developer Name Role Phone Sweta Jama Unavailable PROBLEMS Type Condition ICD9-CM Code SLJ46-TM Code Onset Dates Condition S tatus SNOMED Code Notes Problem Overweight E66.3 Active 105380346 Problem Mixed hyperlipidemia E78.2 Active 442179167 Problem Depression F32.9 Active 74428602 Problem Other seborrheic keratosis L82.1 Active 30018 8000 several noninflamed mary anne k's Problem Hypercalcemia E83.52 Active 65456136 Problem Gastroesophageal reflux disease without esophagitis K21.9 Active 399475356 Problem Hyperparathyroidism, primary E21.0 Active 363 75257 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 Active 70221252 improving Problem Vitamin D deficiency E55.9 Active 13644875 Problem Decreased hearing of both ears H91.93 Active 1 50354190 Problem Dyspareunia in female N94.10 Active 48276259 Problem Menopausal disorder N95.9 Active 604394602 ALLERGIES No Known Allergies ENCOUNTERS from 1955 to 2020-08-31 Encounter Location Date Provider Diagnosis [address] [address] Aug, Sweta Jama Hyperparathyroidism, primary E21.0 IMMUNIZATIONS Vaccine Route Administration Date Status Influenza [...] Education Language: Question Answer Notes Languages spoken: [place] Mandaen: Question Answer Notes Mandaen 21 Buddhism Sexual Hx: Question Answer Notes Had sex [...] REASON FOR REFERRAL No Information VITAL SIGNS No information MEDICATIONS Medication SIG (Take, Route, Frequency, Duration) Notes Start Da te End Date Status Ibuprofen 200 MG 1 tablet Orally as needed for 30 day(s) Active Intrarosa 6.5 MG 1 vaginal _insert at bedtime Vaginal Onc e a day for 30 day(s) Nov, Not-Taking Drisdol 78353 UNIT 1 capsule with meal Orally Once every 2 weeks Active Duloxetine HCl 30 MG TAKE 1 CAPSULE EVERY DAY Active Multi Vitamin Daily - 1 tablet Orally Once a day for 30 day(s) Active Duloxetine HCl 60 MG 1 capsule Orally before bedtime daily (with 30mg in AM) Active PROCEDURES No Information RESULTS No Results REASON FOR VISIT Lab results MEDICAL (GENERAL) HISTORY Type Description Date Medical [...] Notes Aug, Hyperparathyroidism, primary (ICD-10 - E21.0) PLAN OF TREATMENT Medication Medication Name Sig Start Date Stop Date Duloxetine HCl 60 MG 1 capsule Orally before bedtime daily (with 30mg in AM) Duloxetine HCl 30 MG TAKE 1 CAPSULE EVERY DAY Drisdol 45529 UNIT 1 capsule with meal Orally Once every 2 week s Future Test Test Name Order Date Dexa, Full Body 20200830 Next Appt Details Provider Name:Jania Flores, 2021-02-17 10:3 0:00 AM, [address] [place], [address], Insurance Providers Payer Name Payer Address Payer Phone Insured Name Patient Relati onship to Insured Coverage Start Date Coverage End Date DAVON SHEA [address] [address] [facility] [id number] SHAKEEL COLEMAN
--- OUTSIDE RECORDS SUMMARY | 2020-10-05 08:57 | CCD ---
Author Author [facility] Organization [facility] Address Unknown Phone Unavailable Care Team Providers Care Spa Consultant Name Role Phone Sweta Jama Unavailable PROBLEMS Type Condition ICD9-CM Code SBZ98-SL Code Onset Dates Condition S tatus SNOMED Code Notes Problem Overweight E66.3 Active 240508190 Problem Mixed hyperlipidemia E78.2 Active 980835870 Problem Depression F32.9 Active 23836525 Problem Other seborrheic keratosis L82.1 Active 92746 8000 several noninflamed mary anne k's Problem Hypercalcemia E83.52 Active 93774368 Problem Gastroesophageal reflux disease without esophagitis K21.9 Active 901312648 Problem Hyperparathyroidism, primary E21.0 Active 363 42528 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 Active 73319375 improving Problem Vitamin D deficiency E55.9 Active 02195898 Problem Decreased hearing of both ears H91.93 Active 1 96772019 Problem Dyspareunia in female N94.10 Active 96444759 Problem Menopausal disorder N95.9 Active 708434696 ALLERGIES No Known Allergies ENCOUNTERS from 1955 to 2020-09-08 Encounter Location Date Provider Diagnosis [address] [address] Aug, Sweta Jama IMMUNIZATIONS Vaccine Route Administration Date Status Influenza [...] Education Language: Question Answer Notes Languages spoken: Spanish Tenriism: Question Answer Notes Tenriism 21 Confucianist Sexual Hx: Question Answer Notes Had sex [...] day for 30 day(s) Nov, Not-Taking Drisdol 18351 UNIT 1 capsule with meal Orally Once every 2 weeks Active Duloxetine HCl 30 MG TAKE 1 CAPSULE EVERY DAY Active Multi Vitamin Daily - 1 tablet Orally Once a day for 30 day(s) Active Duloxetine HCl 60 MG 1 capsule Orally before bedtime daily (with 30mg in AM) Active PROCEDURES No Information RESULTS No Results REASON FOR VISIT PRE-OP ? MEDICAL (GENERAL) HISTORY Type Description Date Medical History Depression Medical History ASCVD risk 5.3% in 08/2020 Medical History Vitamin D deficiency Medical History Gastroesophageal reflux disease without esophagitis Medical History Osteopenia - Frax major/hip fx risk 9.2/ 1.3 on Dexa 02/2019 Surgical History tubal ligation 93 Surgical History hysteroscopy, D&C -[facility] 01/13 Surgical History D&C 92 Surgical History colonoscopy with 1 diverticuluum - Dr Ahmet hunter 09/21 Surgical History rectal fissure 92 Goals Section No Information Health Concerns No Information MEDICAL EQUIPMENT No Information MENTAL STATUS No Information FUNCTIONAL STATUS No Information ASSESSMENTS No Information PLAN OF TREATMENT Medication Medication Name Sig Start Date Stop Date Duloxetine HCl 60 MG 1 capsule Orally before bedtime daily (with 30mg in AM) Duloxetine HCl 30 MG TAKE 1 CAPSULE EVERY DAY Drisdol 32898 UNIT 1 capsule with meal Orally Once every 2 week s Next Appt Details Provider Name:Sweta Jama, 2020-09-16 10:00:00 AM, [address] [place] [address], [address], Provider Name:Jania Flores, 2021-02-17 10:3 0:00 AM, [address] [place] [address], [address], Insurance Providers Payer Name Payer Address Payer Phone Insured Name Patient Relati onship to Insured Coverage Start Date Coverage End Date DAVON SHEA [address] [address] [facility] [address] [phone] SHAKEEL GASCA
--- OUTSIDE RECORDS SUMMARY | 2020-10-05 08:57 | CCD | Continuity of Care Document ---
Author Author Ruth CHING MD Organization Unknown Address [address] [place] [address], [facility] [address] [place] [address] Phone [phone] Care Team Providers Care Mechanical Cad Drafter Name Role Phone Jania Flores INSPECTOR ELECTROMECHANICAL-C AUTM [phone] Problems Description No Information Available Social History Type Date Description Comments Sex Unknown ETOH Use Denies alcohol use Tobacco Use Start: Unknown Patient has never smoked Allergies, Adverse Reactions, Alerts Description No Known Drug Allergies Medications Active Medications SIG Qnty Indications Ordering Provide r Date Euflexxa 20mg/2ML Soln [employer]ill Syr marcia left knee #1 10/01/2019 bms/hd left knee #2 bms/lmk 10/08/2019, left knee #3 10/16/2019 M17.12 Man Gloria MD 10/01/[address] Part 1 by [...] Available Procedures Date Code Description Status 08/26/2020 70844 X-Ray Knee Ap & Lateral W/Obliqu es Three Views Completed Medical Devices Description No Information Available Encounters Type Date Location Provider Dx Diagnosis Office Visit 08/17/2020 10[place] M1 7.12 Unilateral primary osteoarthritis, left knee Assessments Date Code Description Provider 08/26/2020 M17.12 Unilateral primary osteoarthriti s, left knee Kimmy Ching MD 08/17/2020 M17.12 Unilateral primary osteoarthriti s, left knee Magalie Luke PA-C Plan of Treatment 08/26/2020 - Kimmy Ching MD* M17.12 Unilateral primary osteoarthritis, left knee* New Orders:* Surgery, Ordered: 08/26/20 * Follow up:* post op Functional Status Description No Information Available Mental Status Description No Information Available Referrals Description No Information Available
--- OUTSIDE RECORDS SUMMARY | 2020-10-05 08:57 | CCD | Continuity of Care Document ---
Author Author Ruth LUKE PA-C Organization Unknown Address [address] [address] Phone [phone] Care Team Providers Care Fabricator Artificial Breast Name Role Phone Jania Flores KAY AUTM [phone] Problems Description No Information Available Social History [...] Available Vital Signs Date Vital Result Comment 08/17/2020 10:30am Body Temperature 96.4 F Height 65 inches 5'5" Weight 152.00 lb BMI (Body Mass Index) 25.3 kg/m2 02/07/2019 9:22am Body Temperature 97.2 F Height 64 inches 5'4" Weight 164.00 lb BMI (Body Mass Index) 28.1 kg/m2 Results Description No Information Available Procedures Description No Information Available Medical Devices Description No Information Available Encounters Type Date Location Provider Dx Diagnosis Office Visit 08/17/2020 10:30a [place] Magalie Luke PA-C M1 7.12 Unilateral primary osteoarthritis, left knee Assessments Date Code Description Provider 08/17/2020 M17.12 Unilateral primary osteoarthriti s, left knee Magalie Luke PA-C Plan of Treatment 08/17/2020 - Magalie Luke PA-C* M17.12 Unilateral primary osteoarthritis, left knee* Follow up:* PANCHO with [facility] for left knee surg eval per [facility] (3 views left knee) Functional Status Description No Information Available Mental Status Description No Information Available Referrals Description No Information Available
--- OUTSIDE RECORDS SUMMARY | 2020-10-05 08:57 | CCD ---
Author Author [facility] Organization [facility] Address Unknown Phone Unavailable Care Team Providers Care Drum Stock Clerk Name Role Phone LILLIAM ANASTACIA PA Unavailable Unavailable MCELHERAN, ANASTACIA PA Unavailable Unavailable MCELHERAN, ANASTACIA PA Unavailable Unavailable MCELHERAN, ANASTACIA PA Unavailable Unavailable MCELHERAN, ANASTACIA PA Unavailable Unavailable MCELHERAN, ANASTACIA PA Unavailable Unavailable MCELHERAN, ANASTACIA PA Unavailable Unavailable MCELHERAN, ANASTACIA PA Unavailable Unavailable MCELHERAN, ANASTACIA PA Unavailable Unavailable MCELHERAN, ANASTACIA PA Unavailable Unavailable MCELHERAN, ANASTACIA PA Unavailable Unavailable MCELHERAN, ANASTACIA PA Unavailable Unavailable MCELHERAN, ANASTACIA PA Unavailable Unavailable MCELHERAN, ANASTACIA PA Unavailable Unavailable MCELHERAN, ANASTACIA PA Unavailable Unavailable MCELHERAN, ANASTACIA PA Unavailable Unavailable MCELHERAN, ANASTACIA PA Unavailable Unavailable MCELHERAN, ANASTACIA PA Unavailable Unavailable MCELHERAN, ANASTACIA PA Unavailable Unavailable MCELAN, ANASTACIA PA Unavailable Unavailable MCELHERAN, ANASTACIA PA Unavailable Unavailable MCELHERAN, ANASTACIA PA Unavailable Unavailable MCELHERAN, ANASTACIA PA Unavailable Unavailable MCELHERAN, ANASTACIA PA Unavailable Unavailable MCELHERAN, ANASTACIA PA Unavailable Unavailable MCELHERAN, ANASTACIA PA Unavailable Unavailable MCELHERAN, ANASTACIA PA Unavailable Unavailable MCELHERAN, ANASTACIA PA Unavailable Unavailable Luke, M Barratt PA Unavailable Unavailable Luke, M Barratt PA Unavailable Unavailable Luke, M Barratt PA Unavailable Unavailable Luke, M Barratt PA Unavailable Unavailable Luke, M Barratt PA Unavailable Unavailable Luke, M Barratt PA Unavailable Unavailable Luke, M Barratt PA Unavailable Unavailable Luke, M Barratt PA Unavailable Unavailable Luke, M Barratt PA Unavailable Unavailable Luke, M Barratt PA Unavailable Unavailable Luke, M Barratt PA Unavailable Unavailable Luke, M Barratt PA Unavailable Unavailable Luke, M Barratt PA Unavailable Unavailable Luke, M Barratt PA Unavailable Unavailable Luke, M Barratt PA Unavailable Unavailable Luke, M Barratt PA Unavailable Unavailable Luke, M Barratt PA Unavailable Unavailable Luke, M Barratt PA Unavailable Unavailable Luke, M Barratt PA Unavailable Unavailable Luke, M Barratt PA Unavailable Unavailable Luke, M Barratt PA Unavailable Unavailable Luke, M Barratt PA Unavailable Unavailable Luke, M Barratt PA Unavailable Unavailable Luke, M Barratt PA Unavailable Unavailable Luke, M Barratt PA Unavailable Unavailable Luke, M Barratt PA Unavailable Unavailable Luke, M Barratt PA Unavailable Unavailable Kendrick Ching MD Unavailable Unavailable Kendrick Ching MD Unavailable Unavailable Kendrick Ching MD Unavailable Unavailable Kendrick Ching MD Unavailable Unavailable Kendrick Ching MD Unavailable Unavailable Kendrick Ching MD Unavailable Unavailable Kendrick Ching MD Unavailable Unavailable Kendrick Ching MD Unavailable Unavailable Kendrick Ching MD Unavailable Unavailable Kendrick Ching MD Unavailable Unavailable Kendrick Ching MD Unavailable Unavailable Kendrick Ching MD Unavailable Unavailable Kendrick Ching MD Unavailable Unavailable Kendrick Ching MD Unavailable Unavailable Kendrick Ching MD Unavailable Unavailable Kendrick Ching MD Unavailable Unavailable Kendrick Ching MD Unavailable Unavailable Kendrick Ching MD Unavailable Unavailable Kendrick Ching MD Unavailable Unavailable Kendrick Ching MD Unavailable Unavailable Kendrick Ching MD Unavailable Unavailable Vaneenenaam, Kendrick Hughes MD Unavailable Unavailable Vaneenenaam, Kendrick Hughes MD Unavailable Unavailable Vaneenenaam, Kendrick Hughes MD Unavailable Unavailable Vaneenenaam, Kendrick Hughes MD Unavailable Unavailable Vaneenenaam, Kendrick Hughes MD Unavailable Unavailable Vaneenenaam, Kendrick Hughes MD Unavailable Unavailable Vaneenenaam, Kendrick Hughes MD Unavailable Unavailable Vaneenenaam, Kendrick Hughes MD Unavailable Unavailable Vaneenenaam, Kendrick Hughes MD Unavailable Unavailable Vaneenenaam, Kendrick Hughes MD Unavailable Unavailable Vaneenenaam, Kendrick Hughes MD Unavailable Unavailable Vaneenenaam, Kendrick Hughes MD Unavailable Unavailable Vaneenenaam, Kendrick Hughes MD Unavailable Unavailable Vaneenenaam, Kendrick Hughes MD Unavailable Unavailable Vaneenenaam, Kendrick Hughes MD Unavailable Unavailable Vaneenenaam, Kendrick Hughes MD Unavailable Unavailable Vaneenenaam, Kendrick Hughes MD Unavailable Unavailable Vaneenenaam, Kendrick Hughes MD Unavailable Unavailable Vaneenenaam, Kendrick Hughes MD Unavailable Unavailable Vaneenenaam, Kendrick Hughes MD Unavailable Unavailable Vaneenenaam, Kendrick Hughes MD Unavailable Unavailable Re-disclosure Warning The records that you are about to access may contain information from federally-assisted alcohol or drug abuse programs. If such information is present, then the following federally mandated warning applies: This information has been disclosed to you from records protected by federal confidentiality rules (42 CFR part 2). The federal rules prohibit you from making any further disclosure of this information unless further disclosure is expressly permitted by the written consent of the person to whom it pertains or as otherwise permitted by 42 CFR part 2. A general authorization for the release of medical or other information is NOT sufficient for this purpose. The Federal rules restrict any use of the information to criminally investigate or prosecute any alcohol or drug abuse patient.The records that you are about to access may contain highly sensitive health information, the redisclosure of which is protected by Article 27-F of the [facility] Public Health law. If you continue you may have access to information: Regarding HIV / AIDS; Provided by facilities licensed or operated by the [facility] Office of Mental Health; or Provided by the [facility] Office for People With Developmental Disabilities. If such information is present, then the following [facility] mandated warning applies: This information has been disclosed to you from confidential records which are protected by state law. State law prohibits you from making any further disclosure of this information without the specific written consent of the person to whom it pertains, or as otherwise permitted by law. Any unauthorized further disclosure in violation of state law may result in a fine or skilled nursing sentence or both. A general authorization for the release of medical or other information is NOT sufficient authorization for further disc losure. Family History Family Member Name Family Member Gender Family Member Status Date o f Status Description Data Source(s) Unknown Male Problem MEDENT ([facility]) Encounters Encounter Providers Location Date Indications Data Source(s ) Office Visit Attender: ANASTACIA ORTEGA Physical Therapy 09/28/2020 04:30:00 PM EST MEDENT ([facility]) Office Visit, Est Pt., Level 3 PC [address] [place] [address] 09/16/2020 12:00:00 AM EST eCW1 ([facility]) Unknown [address] [facility] [address] 09/06/2020 12:00:00 AM EST eCW1 ([facility]) Unknown [address] [facility] [address] 08/30/2020 12:00:00 AM EST eCW1 ([facility]) Outpatient Attender: Kendrick Ching MD Physical Therap y 08/26/2020 07:00:00 AM EST MED[facility] ([facility]) Outpatient [address] [facility] [address] 08/19/2020 12:00:00 AM EST eCW1 ([facility]) Outpatient Attender: Magalie ORTEGA Physical Therapy 09:30:00 AM EST MEDENT ([facility]) Outpatient [address] [facility] [place] [address] 06/08/2020 12:00:00 AM EDT eCW1 ([facility]) Unknown [address] [facility] [place] [address] 05/04/2020 12:00:00 AM EDT eCW1 ([facility]) Unknown [address] [facility] [place] [address] 05/04/2020 12:00:00 AM EDT [facility]CW1 [facility] [address] [facility] [address] 04/21/2020 12:00:00 AM EDT eCW1 ([facility]) [facility] [address] [place] [address] 04/15/2020 12:00:00 AM EDT eCW1 ([facility]) [facility] [address] [facility] [place] [address] 10/22/2019 12:00:00 AM EDT eCW1 ([facility]) [facility] [address] [place] [address], [place] [address] 09/25/2019 12:00:00 AM EST eCW1 ([facility]) [facility] [address] [place] [address] [address] 09/23/2019 12:00:00 AM EST eCW1 ([facility]) [facility] [address] [place] [address] [address] 09/17/2019 12:00:00 AM EST eCW1 ([facility]) [facility] [address] [facility] [place] [address] 09/03/2019 12:00:00 AM EST eCW1 ([facility]) [facility] [address] [place] [address] [address] 08/08/2019 12:00:00 AM EST eCW1 ([facility]) Immunizations Vaccine Date Status Description Data Source(s) influenza, recombinant, quadrIvalent,injectable, prese rvative free 06/08/2020 11:52:00 AM EDT completed eCW1 ([facility]) influenza, recombinant, quadrIvalent,injectable, prese rvative free 06/08/2020 11:52:00 AM EDT completed eCW1 ([facility]) influenza, recombinant, quadrIvalent,injectable, prese rvative free 06/08/2020 11:52:00 AM EDT completed eCW1 ([facility]) influenza, recombinant, quadrIvalent,injectable, prese rvative free 06/08/2020 11:52:00 AM EDT completed eCW1 ([facility]) influenza, recombinant, quadrIvalent,injectable, prese rvative free 06/08/2020 11:52:00 AM EDT completed eCW1 ([facility]) Medications Medication Brand Name Start Date Product Form Dose Route Admi nistrative Instructions Pharmacy Instructions Status Indications Reaction Description Data Source(s) Mupirocin 0.02 MG/MG Topical Ointment Mupirocin 09/22/2020 12:00:00 AM EST active [facility] ([facility]) chlorhexidine gluconate 40 MG/ML Medicated Liquid Soap [Hibi clens] Hibiclens 09/22/2020 12:00:00 AM EST active MED[facility] ([facility]) 2 ML Sodium Hyaluronate 10 MG/ML Prefilled Syringe [Euflexxa ] Euflexxa 10/01/2019 12:00:00 AM EST active MED[facility] ([facility]) duloxetine 60 MG Delayed Release Oral Capsule Duloxeti ne HCl 60 MG Duloxetine HCl 60 MG 09/23/2019 12:00:00 AM EST active 1 capsule eCW1 ([facility]) Duloxetine HCl 30 MG UNK 09/03/2019 12:00:00 AM EST active 1 capsule eCW1 ([facility]) Insurance Providers Payer name Policy type / Coverage type Policy ID Covered green party ID Covered green party's relationship to adam Policy Adam Plan Information HUMANA GOLD [id number] SP [id number] HUMANA GOLD [id number] SP [id number] R O [id number] S [id number] HUMANA GOLD O [id number] S [id number] HUMANA GOLD [id number] SP [id number] [facility] [id number] MEDICARE [id number] SP [id number] POMCO [id number] HU2 [id number] [facility] [id number] ANSI-Not a Secondary Insurance [id number] ANSI-Medicare Part B [id number] Ghi/Emblem HLTH (pr) Medigap Part B [id number] Family Depende nt [id number] [place] (pr) Medigap Part B [id number] Family Dependent [id number] Umr (pr) Medigap Part B [id number] Family Dependent [id number] [place] Primary [id number] Self [id number] ANSI-Medicare Part B [id number] ANSI-Not a Secondary Insurance [id number] Ghi/Emblem HLTH (pr) Medigap Part B [id number] Family Depende nt [id number] [place] (pr) Medigap Part B [id number] Family Dependent [id number] Umr (pr) Medigap Part B [id number] Family Dependent [id number] [place] Primary [id number] Self [id number] ANSI-Not a Secondary Insurance [id number] ANSI-Commercial [id number] ANSI-Medicare Part B [id number] UMR [facility] [id number] [place]2 [id number] Ghi/Emblem HLTH (pr) Medigap Part B [id number] Family Depende nt [id number] [place] (pr) Medigap Part B [id number] Family Dependent [id number] Umr (pr) Medigap Part B [id number] Family Dependent [id number] [place] Primary [id number] Self [id number] Ghi/Emblem HLTH (pr) Medigap Part B [id number] Family Depende nt [id number] [place] (pr) Medigap Part B [id number] Family Dependent [id number] Umr (pr) Medigap Part B [id number] Family Dependent [id number] [place] Primary [id number] Self [id number] Ghi/Emblem HLTH (pr) Medigap Part B [id number] Family Depende nt [id number] [place] (pr) Medigap Part B [id number] Family Dependent [id number] Umr (pr) Medigap Part B [id number] Family Dependent [id number] [place] Primary [id number] Self [id number] ANSI-Commercial [id number] ANSI-Medicare Part B [id number] ANSI-Not a Secondary Insurance [id number] ANSI-Commercial [id number] POMCO [id number] HU2 [id number] POM[employer] [id number] HU2 [id number] Problems, Conditions, and Diagnoses Code Display Name Description Problem Type Effective Dates Data Source(s) M17.12 [id number] Unilateral primary osteoarthritis, lef t knee Problem 09/16/2020 12:00:00 AM EST eCW1 ([facility]) E21.0 [id number] Hyperparathyroidism, primary Problem 12:00:00 AM EST eCW1 ([facility]) E21.0 [id number] Hyperparathyroidism, primary Problem 12:00:00 AM EST eCW1 ([facility]) E83.52 [id number] Hypercalcemia Problem 09/23/2019 12:00:00 AM EST eCW1 ([facility]) E83.52 [id number] Hypercalcemia Problem 09/23/2019 12:00:00 AM EST eCW1 ([facility]) Surgeries/Procedures Procedure Description Date Indications Data Source(s) RADIOLOGIC EXAMINATION KNEE 3 VIEWS 08/26/2020 12:00:0 0 AM EST MEDENT ([facility]) Immunization: Flublok Quadrivalent (18 years & older) 0.5mL IM (Influenza) 06/08/2020 12:00:00 AM EDT eCW1 ([facility]) Office Visit, Est Pt., Level 4 PC 10/22/2019 12:00:00 AM EDT eCW1 ([facility]) Office Visit, Est Pt., Level 2 FC 10/22/2019 12:00:00 AM EDT eCW1 ([facility]) ARTHROCENTESIS ASPIR&/INJECTION MAJOR JT/BURSA 12:00:00 AM EST MEDENT ([facility] ARTHROCENTESIS ASPIR&/INJECTION MAJOR JT/BURSA 12:00:00 AM EST MEDENT ([facility] ) ARTHROCENTESIS ASPIR&/INJECTION MAJOR JT/BURSA 020 12:00:00 AM EST MEDENT ([facility] ) ARTHROCENTESIS ASPIR&/INJECTION MAJOR JT/BURSA 12:00:00 AM EST MEDENT ([facility]) Office Visit, Est Pt., Level 3 PC 09/03/2019 12:00:00 AM EST eCW1 ([facility]) Results ID Date Data Source [id number] 09/30/2020 12:43:00 PM EST MEDENT ([facility]) Name Value Range Interpretation Code Description Data Dina rce(s) Supporting Document(s) Erythrocyte sedimentation rate by Westergren method 13 mm/hr 0-30 MEDENT ([facility]) ID Date Data Source [id number] 09/30/2020 12:43:00 PM EST MEDENT ([facility]) Name Value Range Interpretation Code Description Data Dina rce(s) Supporting Document(s) White Blood Count 7.8 10 4.0-10.0 MEDENT ([facility]) Red Blood Count 4.31 10 4.00-5.40 MEDENT ([facility]) Hematocrit 40.4 % 36.0-47.0 MEDENT ([facility]) Mean Corpuscular Volume 93.7 fl 80.0-96.0 M EDENT ([facility]) Hemoglobin 13.0 g/dL 12.0-15.5 MEDENT ([facility]) Mean Corpuscular HGB Conc 32.2 g/dL 32.0-36.5 MEDENT ([facility]) Mean Corpuscular Hemoglobin 30.2 pg 27.0-33.0 MEDENT ([facility]) Red Cell Distribution Width 12.5 % 11.5-14.5 MED[facility] ([facility]) Platelet Count, Automated 238 10 150-450 MEDENT ([facility]) Nucleated Red Blood Cell % 0.0 % 0-0 MED ENT ([facility]) ID Date Data Source [id number] 09/30/2020 12:43:00 PM EST MEDENT ([facility]) Name Value Range Interpretation Code Description Data Dina rce(s) Supporting Document(s) Glucose, Fasting 85 mg/dL 70-100 MEDENT ([facility]) Blood Urea Nitrogen 17 mg/dL 7-18 [facility] ([facility]) Creatinine For GFR 0.83 mg/dL 0.55-1.30 MED[facility] ([facility]) Glomerular Filtration Rate Laboratory test result MEDENT ([facility]) <content>Units are mL/min/1.73 m2</content>
<content></content>
<content>Chronic Kidney Disease Staging per NKF:</content>
<content></content>
<content>Stage I & II GFR >=60 Normal to Mildly Decreased</content>
<content>Stage III GFR 30- 59 Moderately Decreased</content>
<content>Stage IV GFR 15-29 Severely Decreased</content>
<content>Stage V GFR <15 Very Little GFR Left</content>
<content>ESRD GFR <15 on ASSEMBLY STOCK SUPERVISOR</content>
<content></content> Sodium Level 141 meq/L 136-145 MEDENT ([facility]) Potassium Serum 4.0 meq/L 3.5-5.1 MEDENT ([facility]) Chloride Level 107 meq/L 98-107 MED[facility] ([facility]) Carbon Dioxide Level 27 meq/L 21-32 MED[facility] ([facility]) Anion Gap 7 meq/L 8-16 MED[facility] ([facility]) Ast/Sgot 10 U/L 7-37 MED[facility] ([facility]) Calcium Level 10.5 mg/dL 8.8-10.2 MEDENT ([facility]) Alt/SGPT 19 U/L 12-78 MEDENT ([facility]) Alkaline Phosphatase 141 U/L 45-117 MED[facility] ([facility]) Bilirubin,Total 0.3 mg/dL 0.2-1.0 MEDENT ([facility]) Albumin 3.8 GM/DL 3.2-5.2 [facility] ([facility]) Total Protein 6.4 GM/DL 6.4-8.2 MED[facility] ([facility]) Albumin/Globulin Ratio 1.5 1.2-2.2 MEDENT ([facility]) ID Date Data Source [id number] 09/30/2020 12:43:00 PM EST MEDENT ([facility]) Name Value Range Interpretation Code Description Data Dina rce(s) Supporting Document(s) Prothrombin Time 13.0 s 12.5-14.3 MED[facility] ([facility]) Inr 0.96 MEDENT ([facility]) THERAPUTIC HUMAN INR VALUES INDICATIONS NORMAL RANGES PROPHYLAXIS/TREATMENT OF: VENOUS THROMBOSIS 2.0-3.0 PULMONARY EMBOLISM 2.0-3.0 PREVENTION OF SYSTEMIC EMBOLISM FROM: TISSUE HEART VALVES 2.0-3.0 ACUTE MYOCARDIAL INFARCTION 2.0-3.0 VALVULAR HEART DISEASE 2.0-3.0 ATRIAL FIBRILLATION 2.0-3.0 MECHANICAL VALVES(HIGH RISK) 2.5-3.5 RECURRENT MYOCARDIAL INFARCTION 2.5-3.5 ID Date Data Source [id number] 09/30/2020 11:00:00 AM EST [facility] Name Value Range Interpretation Code Description Data Dina rce(s) Supporting Document(s) SARS coronavirus 2 RNA Not Detected [facility] This lab was ordered by [facility] and reported by [facility]. ID Date Data Source [id number] 09/03/2020 03:32:00 PM EST MEDENT ([facility]) Name Value Range Interpretation Code Description Data Dina rce(s) Supporting Document(s) Laboratory test finding (navigational concept) Laboratory test result MEDENT ([facility]) ID Date Data Source [id number] 09/03/2020 01:55:00 PM EST MEDENT ([facility]) Name Value Range Interpretation Code Description Data Dina rce(s) Supporting Document(s) Erythrocyte sedimentation rate by Westergren method Laboratory test result MEDENT ([facility]) ID Date Data Source [id number] 09/03/2020 01:53:00 PM EST MEDENT ([facility]) Name Value Range Interpretation Code Description Data Dina rce(s) Supporting Document(s) EKG Laboratory test result MEDENT ([facility]) ID Date Data Source [id number] 09/03/2020 01:52:00 PM EST MEDENT ([facility]) Name Value Range Interpretation Code Description Data Dina rce(s) Supporting Document(s) Chest x-ray Laboratory test result MEDEN T ([facility]) ID Date Data Source [id number] 06/08/2020 06:07:58 AM EDT eCW1 [facility] Name Value Range Interpretation Code Description Data Dina rce(s) Supporting Document(s) 44.9 TOTAL 25(OH) VITAMIN D eCW1 ([facility]) ID Date Data Source LIPID PANEL (CARDIAC RISK) 06/08/2020 06:07:58 AM EDT eCW1 ( [facility]) Name Value Range Interpretation Code Description Data Dina rce(s) Supporting Document(s) Cholesterol [Moles/volume] in Serum or Plasma 221 CHOLESTEROL LEVEL eCW1 ([facility]) Cholesterol in HDL [Moles/volume] in Serum or Plasma 57 HDL CHOLESTEROL eCW1 ([facility]) Cholesterol in LDL [Mass/volume] in Serum or Plasma by calculation 141 LDL CHOLESTEROL eCW1 ([facility]) Triglyceride [Mass/volume] in Serum or Plasma by calculation 116 TRIGLYCERIDES LEVEL eCW1 ([facility]) 164 NON-HDL-C eCW1 ([facility]) 3.877 CHOLESTEROL RISK RATIO eCW1 ([facility]) ID Date Data Source Comprehensive Metabolic Profile (CMP) 06/08/2020 06:07:58 AM EDT eCW1 ([facility]) Name Value Range Interpretation Code Description Data Dina rce(s) Supporting Document(s) 78 GLUCOSE, FASTING eCW1 ([facility]) 0.77 CREATININE FOR GFR eCW1 ([facility]) 20 BLOOD UREA NITROGEN eCW1 ([facility]) 108 CHLORIDE LEVEL eCW1 ([facility]) 4.4 POTASSIUM SERUM eCW1 ([facility]) > 60.0 GLOMERULAR FILTRATION RATE eCW 1 ([facility]) 142 SODIUM LEVEL eCW1 ([facility]) 17 ALT/SGPT eCW1 ([facility]) 10.2 CALCIUM LEVEL eCW1 ([facility]) 7 AST/SGOT eCW1 ([facility]) 30 CARBON DIOXIDE LEVEL eCW1 ([facility]) 4.0 ALBUMIN eCW1 ([facility]) 6.8 TOTAL PROTEIN eCW1 ([facility]) 123 ALKALINE PHOSPHATASE eCW1 ([facility]) 0.4 BILIRUBIN,TOTAL eCW1 ([facility]) 1.4 ALBUMIN/GLOBULIN RATIO eCW1 ([facility]) ID Date Data Source FREE T4 & TSH PANEL 09/03/2019 12:00:00 AM EST eCW1 ([facility]) Name Value Range Interpretation Code Description Data Dina rce(s) Supporting Document(s) 1.01 0.76-1.46 FREE T4 eCW1 ([facility]) 1.170 0.358-3.740 THYROID STIMULATING HORM ONE eCW1 ([facility]) Procedure Social History Code Duration Value Status Description Data Source(s ) Smoking 09/16/2020 12:00:00 AM EST Never Smoker completed Never S moker eCW1 ([facility]) Smoking 08/30/2020 12:00:00 AM EST Never Smoker completed Never S moker eCW1 ([facility]) Smoking 08/30/2020 12:00:00 AM EST Never Smoker completed Never S moker eCW1 ([facility]) Smoking 08/19/2020 12:00:00 AM EST Never Smoker completed Never S moker eCW1 ([facility]) Smoking 06/08/2020 12:00:00 AM EDT Never Smoker completed Never S moker eCW1 ([facility]) Smoking 10/22/2019 12:00:00 AM EDT Never Smoker completed Never S moker eCW1 ([facility]) Smoking 10/22/2019 12:00:00 AM EDT Never Smoker completed Never S moker eCW1 ([facility]) Vital Signs ID Date Data Source UNK Name Value Range Interpretation Code Description Data Source(s) Respiratory rate 17 /min 17 /min MEDENT ( [facility] ) Body mass index (BMI) [Ratio] 26.0 kg/m2 26.0 k g/m2 MEDENT ([facility] ) Body weight 156.00 [lb_av] 156.00 [lb_av] MEDEN T ([facility] ) Body height 65 [in_i] 65 [in_i] MEDENT ([facility] ) 5'5" Body temperature 97.3 [degF] 97.3 [degF] MEDENT ([facility]) Heart rate 64 /min 64 /min MEDENT ([facility]) Diastolic blood pressure 80 mm[Hg] 80 mm[Hg] MEDENT ([facility]) Systolic blood pressure 132 mm[Hg] 132 mm[Hg] M EDENT ([facility]) Diastolic blood pressure 80 mm[Hg] 80 mm[Hg] eCW1 ([facility]) Systolic blood pressure 132 mm[Hg] 132 mm[Hg] e CW1 ([facility]) Body temperature 97.7 [degF] 97.7 [degF] eCW1 ( [facility]) Respiratory rate 18 /min 18 /min eCW1 ([facility]) Heart rate 89 /min 89 /min eCW1 ([facility]) Body mass index (BMI) [Ratio] 27.12 kg/m2 27.12 kg/m2 eCW1 ([facility]) Body height 64 [in_i] 64 [in_i] eCW1 ([facility]) Body weight 158 [lb_av] 158 [lb_av] eCW1 ([facility]) Body temperature 97.1 [degF] 97.1 [degF] MEDENT ([facility]) Diastolic blood pressure 80 mm[Hg] 80 mm[Hg] eCW1 ([facility]) Systolic blood pressure 112 mm[Hg] 112 mm[Hg] e CW1 ([facility]) Body temperature 96.4 [degF] 96.4 [degF] eCW1 ( [facility]) Respiratory rate 18 /min 18 /min eCW1 ([facility]) Heart rate 82 /min 82 /min eCW1 ([facility]) Body mass index (BMI) [Ratio] 27.12 kg/m2 27.12 kg/m2 eCW1 ([facility]) Body height 64 [in_i] 64 [in_i] eCW1 ([facility]) Body weight 158 [lb_av] 158 [lb_av] eCW1 ([facility]) Body mass index (BMI) [Ratio] 25.3 kg/m2 25.3 k g/m2 MEDENT ([facility]) Body weight 152.00 [lb_av] 152.00 [lb_av] MEDEN T ([facility]) Body height 65 [in_i] 65 [in_i] MEDENT ([facility]) 5'5" Body temperature 96.4 [degF] 96.4 [degF] MEDENT ([facility]) Diastolic blood pressure 80 mm[Hg] 80 mm[Hg] eCW1 ([facility]) Systolic blood pressure 130 mm[Hg] 130 mm[Hg] e CW1 ([facility]) Body temperature 98 [degF] 98 [degF] eCW1 ([facility]) Respiratory rate 18 /min 18 /min eCW1 ([facility]) Heart rate 82 /min 82 /min eCW1 ([facility]) Body mass index (BMI) [Ratio] 26.60 kg/m2 26.60 kg/m2 eCW1 ([facility]) Body height 64 [in_i] 64 [in_i] eCW1 ([facility]) Body weight 155 [lb_av] 155 [lb_av] eCW1 ([facility]) Diastolic blood pressure 74 mm[Hg] 74 mm[Hg] eCW1 ([facility]) Systolic blood pressure 122 mm[Hg] 122 mm[Hg] e CW1 ([facility]) Body temperature 98.1 [degF] 98.1 [degF] eCW1 ( [facility]) Respiratory rate 18 /min 18 /min eCW1 ([facility]) Heart rate 80 /min 80 /min eCW1 ([facility]) Body mass index (BMI) [Ratio] 27.29 kg/m2 27.29 kg/m2 W1 ([facility]) Body height 64 [in_us] 64 [in_us] eCW1 ([facility]) Body weight Measured 159.0 [lb_av] 159.0 [lb_av ] eCW1 ([facility]) Diastolic blood pressure 84 mm[Hg] 84 mm[Hg] eCW1 ([facility]) Systolic blood pressure 120 mm[Hg] 120 mm[Hg] e CW1 ([facility]) Body temperature 97.0 [degF] 97.0 [degF] eCW1 ( [facility]) Respiratory rate 18 /min 18 /min eCW1 ([facility]) Heart rate 106 /min 106 /min eCW1 ([facility]) Body mass index (BMI) [Ratio] 26.95 kg/m2 26.95 kg/m2 eCW1 ([facility]) Body height 64 [in_us] 64 [in_us] eCW1 ([facility]) Body weight Measured 157.0 [lb_av] 157.0 [lb_av ] eCW1 ([facility]) Patient Treatment Plan of Care Planned Activity Planned Date Details Description Data Source (s) duloxetine 60 MG Delayed Release Oral Capsule 09/23/2019 12:00:00 A M EST eCW1 ([facility]) Duloxetine HCl 30 MG 09/03/2019 12:00:00 AM EST eCW1 ([facility])
--- OUTSIDE RECORDS SUMMARY | 2020-10-05 08:57 | CCD | Continuity of Care Document ---
Author Author Ruth CHING MD Organization Unknown Address [address] [place] [address] Phone [phone] Care Team Providers Care Funeral Prearrangement Counselor Name Role Phone Jania Flores AUTM [phone] Problems Description No Information Available Social History [...] BMI (Body Mass Index) 25.3 kg/m2 Results Test Acquired Date Facility Test Result H/L Range Note Laboratory test finding 09/03/2020 [facility] [address] [place] [address] (540)- - Erythrocyte Sedimentation Rate <pending> Xray 09/03/2020 [facility] (315)- - Chest x-ray <pending> Order 09/03/2020 [facility] Surgery <pending> Order 09/03/2020 [facility] EKG <pending> Procedures Date Code Description Status 08/26/2020 38691 X-Ray Knee Ap & Lateral W/Obliqu es [...] Description No Information Available Referrals Refer to Reason for Referral Status Appt Date Kendrick Ching MD SURGERY PER PIPER Russell T DAVON LEFT TOTAL KNEE([id number]) IS APPROVED FOR SAME DAY SURGERY . IF MORE TIME NEEDED HOSPITAL MUST CALL TO SURGERY NT Created [address] [facility], [address] [place] [address] [phone]
[2020-10-05] MEDS ORDERED: dexameTHASONE 10MG/1ML VIAL PRES.FREE (J1100 PER 1MG) XX ONE (10:30)
[2020-10-05] MEDS ORDERED: BUPIVACAINE HCL 0.5% 30 ML VIAL XX ONE (10:30)
[2020-10-05] MEDS ORDERED: EPINEPHrine INJ 1 MG/ML 1ML AMP XX ONE (10:30)
[2020-10-05] MEDS ORDERED: LIDOCAINE 2% 100MG/5ML SDV (FOR ANES.) As Ordered ONE (11:11)
[2020-10-05] MEDS ORDERED: propofoL 500 MG/50 ML VIAL As Ordered ONE (11:12)
[2020-10-05] MEDS ORDERED: MIDAZOLAM INJ 2MG/2ML VIAL (J2250 PER 1MG) As Ordered ONE (11:12)
[2020-10-05] MEDS ORDERED: fentaNYL 100 MCG/2 ML INJECTION (J3010) As Ordered ONE (11:12)
[2020-10-05] MEDS ORDERED: BUPIVACAINE HCL 0.25% 10ML VIAL As Ordered ONE (12:56)
[2020-10-05] MEDS ORDERED: TRANEXAMIC ACID 100 MG/ML 10ML VIAL As Ordered ONE (12:56)
[2020-10-05] MEDS ORDERED: EPINEPHrine INJ 1 MG/ML 1ML AMP As Ordered ONE (12:57)
[2020-10-05] MEDS ORDERED: ceFAZolin 1GM VIAL (J0690 PER 500MG) As Ordered ONE (12:57)
[2020-10-05] MEDS ORDERED: BUPIVACAINE LIPOSOME/PF 1.3% 20ML VIAL (13.3MG/ML)(EXPAREL)(C9290 PER1MG) As Ordered ONE (12:57)
[2020-10-05] MEDS ORDERED: ONDANSETRON 4MG/2ML VIAL As Ordered ONE (13:39)
--- NOTE | 2020-10-05 15:49 | REP ---
INDICATION: POST OP IN PACU. COMPARISON: None. TECHNIQUE: Portably obtained AP and cross-table lateral views. FINDINGS: AP and lateral views of the left knee demonstrate left knee arthroplasty components in good position with respect to each other and there are [place] bones. Postoperative intra-articular and periarticular soft tissue air is seen. Anterior skin jony are noted.. No fracture or subluxation is seen. . IMPRESSION: Status post left knee arthroplasty.. <Electronically signed by Hipolito Hogue > 10/05/20 [id number]
--- NOTE | 2020-10-05 16:23 | HPEPDOC ---
[facility] Medical History & Physical Date of Admission Oct 05, 2020 Date of Service: Oct 05, 2020 Attending Physician: Cheri Anderson MD History and Physical MEDICAL H&P HISTORY OF PRESENT ILLNESS: Patient is a 65-year-old female with past medical history osteopenia, osteoarthritis of left knee, depression, vitamin D deficiency who had elective left total knee arthroplasty on 10/05/[address] Hale. Patient had failed o/p conservative treatment and pain continued to effect activities of daily living. Pre- and Postoperatively there were no complications. On exam in recovery room patient was stable, had no acute complaints aside from feeling numb in her b/l lower ext likely / to anesthesia. She denied chest pain, shortness of breath, n/v/d, fevers, chills, abdominal pain, lightheadedness, dizziness. REVIEW OF SYSTEMS: Neg except for what is mentioned above PAST MEDICAL HISTORY: Depression Vitamin D deficiency GERD Osteoarthritis of left knee Osteopenia PAST SURGICAL HISTORY: tubal ligation 1992 hysterectomy, D&C 2002 D&C 1991 Colonoscopy with diverticulum FAMILY HISTORY: Father: pancreatic cancer. at 64 y/o Mother: No known medical issues. Alive SOCIAL HISTORY: Denies alcohol, smoking or illicit drug use. PCP- Sweta Jama. Full Code. ALLERGIES: Please see below. HOME MEDICATIONS: Please see below. PHYSICAL EXAMINATION: VS: Please see below CONSTITUTIONAL: No acute distress, resting comfortably, AAO x 3 EYES: PERRLA, EOM intact HENT, MOUTH: Normocephalic, atraumatic, moist mucous membranes, NECK: SUPPLE, no JVD, no lymphadenopathy, no carotid bruit CV: Regular rate and rhythm, S1S2 normal, no murmurs/rubs/gallops RESPIRATORY: Clear to auscultation bilaterally, no rales/rhonchi/wheezes GI: BS positive in 4 quadrants, soft, nontender, nondistended, no rebound or guarding, no organomegaly : Deferred MUSCULOSKELETAL: Left lower ext wrapped in JYOTI bandage. ROM not tested. No cy anosis, clubbing, swelling, joint deformity, extremity edema INTEGUMENTARY: Intact, no rashes, no lesions, no erythema NEUROLOGIC: decreased sensory to dull and sharp in lower ext, Cranial Nerves II- XII are intact, no focal deficits PSYCHIATRIC: Mood and affect are normal LABORATORY DATA: Please see below IMAGING: Post-op left knee XR: see below ASSESSMENT: 65-year-old female with past medical history osteopenia, osteoarthritis of left knee, depression, vitamin D deficiency who had elective left total knee arthroplasty on 10/05/[address] Hale, admitted for observation. PLAN: Left knee osteoarthritis s/p left total knee arthroplasty, POD 0 -Pain control, PT/OT -Ortho primary Depression -Stable -C/w home medications Vitamin D deficiency -Can resume home supplements after discharge. DVT px -Anticoagulation per ortho DISPOSITION: Thank you kindly for this consult. Will continue to follow closely while admitted. Vital Signs Vital Signs Date Time Temp Pulse Resp B/P (MAP) Pulse Ox O2 Delivery O2 Flow Rate FiO2 10/05/20 16:04 56 14 149/65 (93) 100 Room Air 10/05/20 15:22 97 10/05/20 12:44 3 Home Medications Scheduled Duloxetine Hcl (Duloxetine HCl) 30 Mg Capsule., [facility] Duloxetine Hcl (Duloxetine HCl) 60 Mg Capsule., [facility] Ergocalciferol (Vitamin D2) (Drisdol) 1,250 Mcg Capsule, 1,250 MCG PO Q2WK Allergies Coded Allergies: No Known Allergies (Verified Allergy, Unknown, 09/29/20) A-FIB/CHADSVASC A-FIB History Current/History of A-Fib/PAF?: No Current PO Anticoag Therapy: No Age/Risk Factor Scoring CHADSVASC: CHADSVASC Response (Comments) Value Age Risk Factor Age < 65 years old 0 Gender Risk Factor Female 1 Hx of CHF No 0 Hx of HTN No 0 Hx of Stroke/TIA/or VTE No 0 Hx of Diabetes No 0 Hx of Vascular Disease No 0 Total 1 Treatment Treatment ordered: Other Other anticoagulant ordered: other-per ortho Cheri Anderson MD Oct 05, 2020 16:23
[2020-10-05] MEDS ORDERED: fentaNYL 100 MCG/2 ML INJECTION (J3010) IV PRN (16:45)
[2020-10-05] MEDS ORDERED: ONDANSETRON 4MG/2ML VIAL IV PRN ×2 (16:45→17:00)
[2020-10-05] MEDS ORDERED: oxyCODONE 5MG TAB PO PRN (16:45)
[2020-10-05] MEDS ORDERED: LR 1,000 ML IV SCH ×2 (16:45→17:00)
[2020-10-05] MEDS ORDERED: MORPHINE 4 MG/ML 1ML VIAL/SYRINGE (J2270) IV PRN (17:00)
[2020-10-05] MEDS ORDERED: MORPHINE 2 MG/ML 1ML VIAL (J2270) IV PRN (17:00)
[2020-10-05] MEDS ORDERED: PERCOCET 5MG/325MG TAB PO PRN (17:00)
[2020-10-05] MEDS ORDERED: ACETAMINOPHEN TAB 650MG DOSE (2X325MG) PO PRN (17:00)
[2020-10-05 17:15] VITALS: BP 126/67
--- NOTE | 2020-10-05 17:29 | RO ---
OPERATIVE NOTE DATE OF OPERATION: 10/05/2020 PREOPERATIVE DIAGNOSIS: Left knee varus tricompartmental degenerative arthritis. POSTOPERATIVE DIAGNOSIS: Left knee varus tricompartmental degenerative arthritis. PROCEDURE: Left total knee arthroplasty using a size 6 Attune cruciate-retaining femoral component cemented with a size 5 tibial tray, 8 mm rotating platform polyethylene insert and a 35 mm polyethylene button. All the components were cemented. Prosthesis was made by [employer]. It was an Attune knee. SURGEON: Kimmy Cruz M.D. BUILDING TRADES INSTRUCTOR: SHANNON Wilson ANESTHESIA: Spinal with left femoral nerve block. COMPLICATIONS: None. ESTIMATED BLOOD LOSS: 20 mL SPECIMENS: Joint surface. DESCRIPTION OF PROCEDURE: Antibiotics were given intravenously preoperatively and a successful left femoral nerve block and the spinal anesthetic was induced. The tourniquet was placed on the left upper thigh and not inflated. The left lower extremity was carefully prepped and draped in the usual sterile fashion. Then the leg was elevated and after appropriate timeout, the tourniquet was inflated. She was noted to have a small flexion contracture of about 5 degrees and she had marked varus clinically to her knee. Gross crepitus was palpable. An anterior longitudinal incision was made for a medial parapatellar approach to the knee. Bovie cautery was used to coagulate crossing vessels. The arthrotomy was performed. Subperiosteal dissection around the proximal medial tibial plateau and lateral tibial plateau was then performed and then the patella was everted and the knee was flexed and the ACL was debrided. A drill was placed down the center of the femoral canal followed by an intramedullary franklin and the distal femoral cutting jig set at 5 degree valgus cut for a left knee at 9 mm resection level. The block was pinned into position and then the distal femoral cut was performed. AP sizing jig measured for a size 6. It was pinned into position, 3 degrees of external rotation dialed in for a left knee. 4-in-1 block applied and the anterior, posterior chamfer cuts were performed. We then placed the jig for the sulcus osteotomy and the sulcus osteotomy was performed. We then exposed the proximal tibia and referenced off the medial tibial condyle using the extramedullary alignment jig. She had quite a bit of medial dishing and then I set it at 4 mm but raised up a bit such that I was probably estimating about 2 mm resection level beneath the sclerotic medial tibial condyle which is quite dished. The block was pinned into position. Appropriate slope was felt to be dialed in. A secondary check with extramedullary franklin confirmed that we appeared to be parallel to the mechanical axis. Thus, the proximal tibial osteotomy was performed. We then placed a laminar cloth layer laterally and we performed a completion medial meniscectomy with debridement of posteromedial osteophytes. We then placed a laminar cloth layer medially and performed a completion lateral meniscectomy with debridement of posterolateral osteophytes. Spacer blocks were then applied. A 6 was a bit loose. An 8 fit better but she still had a bit of a lateral laxity but it was fairly snug medially but I tried a 10. It did fit but it was actually quite tight but I could just barely get in. It was quite tight especially medially both in flexion and in extension but this did help with some of that lateral laxity but she is still quite snug. Quite a bit of tension on the medial collateral ligament was noted. I did pie-crust it with an 18 gauge needle and with the laminar cloth layer in place with the knee in full extension. This did improve some of the tightness but I still felt that the 8 mm would give her better range of motion and still have reasonable stability and did not feel the overtightening on the medial side. We exposed the proximal tibia, sized for a #5 tibial tray which was pinned into position followed by the reamer and the broach, then the trial 8 mm polyethylene and then we placed the trial femoral component, brought the knee into extension, everted the patella, performed a patellar osteotomy, sized for a 35 button. Lug holes were drilled, trial placed and patellofemoral tracking was nice and anatomic. I did go back and trial the 10 mm polyethylene and again, I was a bit concerned. There was a bit of squeak medially as I flexed and extended the knee and I thought it possibly she could be overtightened and may cause significant pain and minimize her ability to get her range of motion back. Thus, I felt the 8 was a good compromise for range of motion but still had reasonable stability. She was very snug to valgus stress testing and had some lateral laxity as we normally see in varus knees. I removed all the trial components at this point after drilling the lug holes for the femur. We placed Exparel in the subperiosteal tissues around the distal femur and the proximal tibia as my starch treating assistant, Miss [place] Gloria, mixed the cement on the back table as I prepared the bony surfaces for cementing with a copious amount of pulse lavage irrigant solution. Miss [place] Gloria was critical to the success of this difficult procedure by helping with appropriate soft tissue retraction, manipulating the knee, mixing the cement, helping to prepare the patient for surgery, helping to close the wound amongst many other tasks to allow me to perform the operation smoothly, efficiently and safely. After all the bony surfaces were thoroughly dried, I cemented the tibial tray, removed excess cement and placed the polyethylene, cemented the femoral component, removed excess cement and then brought the knee in extension and then everted the patella and cemented the patellar component and held it with a patellar clamp with the knee in full extension until the cement hardened. As we were awaiting this, we copiously pulse lavage irrigated out the knee joint and then placed tranexamic acid in the knee and then began closing the apex of the arthrotomy with two #1 PDS sutures. The medial parapatellar area was closed with a #1 PDS suture and then a #1 double-armed running Stratafix was used to close the capsule. The tourniquet was then released at this point. We irrigated again and then closed the deep subdermal tissues with interrupted 2-0 PDS sutures. The skin was closed with jony, covered with an Optifoam and dry sterile bulky dressing. She was then transferred to the recovery room in stable condition. There were no intraoperative complications.
[2020-10-05 17:45] VITALS: BP 125/68
--- OUTSIDE RECORDS SUMMARY | 2020-10-05 18:13 | CCD ---
Author Author [facility] Organization [facility] Address Unknown Phone Unavailable Care Team Providers Care Sustainability Director Name Role Phone LILLIAM ANASTACIA PA Unavailable [...] Unavailable Kendrick Ching MD Unavailable Unavailable Kendrick Chign MD Unavailable Unavailable Kendrick Ching MD Unavailable [...] Unavailable Unavailable Kendrick Ching MD Unavailable Unavailable eKndrick Ching MD Unavailable Unavailable Kendrick Chnig MD Unavailable Unavailable Kendrick Ching MD Unavailable [...] is protected by Article 27-F of the [facility] Public Health law. If you continue you may have access to information: Regarding HIV / AIDS; Provided by facilities licensed or operated by the [facility] Office of Mental Health; or Provided by the [facility] Office for People With Developmental Disabilities. If such information is present, then the following [facility] mandated warning applies: This information has been [...] law may result in a fine or fdc sentence or both. A general authorization for the release of medical or other information is NOT sufficient authorization for further disc losure. Family History Family Member Name Family Member Gender Family Member Status Date o f Status Description Data Source(s) Unknown Male Problem MEDENT ([facility]) Encounters Encounter Providers Location Date Indications Data Source(s ) Office Visit Attender: ANASTACIA ORTEGA Physical Therapy 09/28/2020 04:30:00 PM EST MEDENT ([facility]) Office Visit, Est Pt., Level 3 PC [address] [place] [address] 09/16/2020 12:00:00 AM EST eCW1 ([facility]) Unknown [address] [facility] [address] 09/06/2020 12:00:00 AM EST eCW1 ([facility]) Unknown [address] [facility] [address] 08/30/2020 12:00:00 AM EST eCW1 ([facility]) Outpatient Attender: Kendrick Ching MD Physical Therap y 08/26/2020 07:00:00 AM EST MEDENT ([facility]) Outpatient [address] [facility] [address] 08/19/2020 12:00:00 AM EST eCW1 ([facility]) Outpatient Attender: Magalie ORTEGA Physical Therapy 09:30:00 AM EST MEDENT ([facility]) Outpatient [address] [facility] [place] [address] 06/08/2020 12:00:00 AM EDT eCW1 ([facility]) Unknown [address] [facility] [place] [address] 05/04/2020 12:00:00 AM EDT eCW1 ([facility]) Unknown [address] [facility] [place] [address] 05/04/2020 12:00:00 AM EDT eCW1 ([facility] [address] [facility] [address] 04/21/2020 12:00:00 AM EDT eCW1 ([facility]) [facility] [address] [place] [place] [address] 04/15/2020 12:00:00 AM EDT eCW1 ([facility]) [facility] [address] [facility] [address] 10/22/2019 12:00:00 AM EDT eCW1 ([facility]) [facility] [address] [place] [address] [address] 09/25/2019 12:00:00 AM EST eCW1 ([facility]) [facility] [address] [place] [address], [place] [address] 09/23/2019 12:00:00 AM EST eCW1 ([facility]) [facility] [address] [place] [address] [address] 09/17/2019 12:00:00 AM EST eCW1 ([facility]) [facility] [address] [facility] [address] 09/03/2019 12:00:00 AM EST eCW1 ([facility]) [facility] [address] [place] [address] [address] 08/08/2019 12:00:00 AM EST eCW1 ([facility]) Immunizations Vaccine Date Status Description Data Source(s) influenza, recombinant, quadrIvalent,injectable, prese rvative free 06/08/2020 11:52:00 AM EDT completed eCW1 ([facility]) influenza, recombinant, quadrIvalent,injectable, prese rvative free 06/08/2020 11:52:00 AM EDT completed eCW1 ([facility]) influenza, recombinant, quadrIvalent,injectable, prese rvative free 06/08/2020 11:52:00 AM EDT completed eCW1 ([facility]) influenza, recombinant, quadrIvalent,injectable, prese rvative free 06/08/2020 11:52:00 AM EDT completed eCW1 ([facility]) influenza, recombinant, quadrIvalent,injectable, prese rvative free 06/08/2020 11:52:00 AM EDT completed eCW1 ([facility]) Medications Medication Brand Name Start Date Product Form Dose Route Admi nistrative Instructions Pharmacy Instructions Status Indications Reaction Description Data Source(s) Mupirocin 0.02 MG/MG Topical Ointment Mupirocin 09/22/2020 12:00:00 AM EST active MEDENT ([facility]) chlorhexidine gluconate 40 MG/ML Medicated Liquid Soap [Hibi clens] Hibiclens 09/22/2020 12:00:00 AM EST active MEDENT ([facility]) 2 ML Sodium Hyaluronate 10 MG/ML Prefilled Syringe [Euflexxa ] Euflexxa 10/01/2019 12:00:00 AM EST active MEDENT ([facility]) duloxetine 60 MG Delayed Release Oral Capsule Duloxeti ne HCl 60 MG Duloxetine HCl 60 MG 09/23/2019 12:00:00 AM EST active 1 capsule eCW1 ([facility]) Duloxetine HCl 30 MG UNK 09/03/2019 12:00:00 AM EST active 1 capsule eCW1 ([facility]) Insurance Providers Payer name Policy type / Coverage type Policy ID Covered green party ID Covered green party's relationship to adam Policy Adam Plan Information HUMANA GOLD [id number] SP [id number] HUMANA GOLD [id number] SP [id number] R O [id number] S [id number] HUMANA GOLD O [id number] S [id number] HUMANA GOLD [id number] SP [id number] [facility] [id number] CO2 [id number] MEDICARE [id number] SP [id number] [employer] [id number] HU2 [id number] [facility] [id number] 2 [id number] ANSI-Not a Secondary Insurance [id number] ANSI-Medicare Part B [id number] Ghi/Emblem HLTH (pr) Medigap Part B [id number] Family Depende nt [id number] [place] (pr) Medigap Part B [id number] Family Dependent [id number] Umr (pr) Medigap Part B [id number] Family Dependent [id number] [place] Primary [id number] Self [id number] ANSI-Medicare Part B [id number] ANSI-Not a Secondary Insurance [id number] Ghi/Emblem HLTH (pr) Medigap Part B [id number] Family Depende nt [id number] [place] (pr) Medigap Part B [id number] Family Dependent [id number] Umr (pr) Medigap Part B [id number] Family Dependent [id number] [place] Primary [id number] Self [id number] ANSI-Not a Secondary Insurance [id number] ANSI-Commercial [id number] ANSI-Medicare Part B [id number] UMR [facility] [id number] WI2 [id number] Ghi/Emblem HLTH (pr) Medigap Part B [id number] Family Depende nt [id number] [place] (pr) Medigap Part B [id number] Family Dependent [id number] Umr (pr) Medigap Part B [id number] Family Dependent [id number] [place] Primary [id number] Self [id number] Ghi/Emblem HLTH (pr) Medigap Part B [id number] Family Depende nt [id number] [place] (pr) Medigap Part B [id number] Family Dependent [id number] Umr (pr) Medigap Part B [id number] Family Dependent [id number] [place] Primary [id number] Self [id number] Ghi/Emblem HLTH (pr) Medigap Part B [id number] Family Depende nt [id number] [place] (pr) Medigap Part B [id number] Family Dependent [id number] Umr (pr) Medigap Part B [id number] Family Dependent [id number] [place] Primary [id number] Self [id number] ANSI-Commercial [id number] ANSI-Medicare Part B [id number] ANSI-Not a Secondary Insurance [id number] ANSI-Commercial [id number] [employer]OM[employer] [id number] HU2 [id number] [employer] [id number] HU2 [id number] Problems, Conditions, and Diagnoses Code Display Name Description Problem Type Effective Dates Data Source(s) M17.12 [id number] Unilateral primary osteoarthritis, lef t knee Problem 09/16/2020 12:00:00 AM EST eCW1 ([facility]) E21.0 [id number] Hyperparathyroidism, primary Problem 12:00:00 AM EST eCW1 ([facility]) E21.0 [id number] Hyperparathyroidism, primary Problem 12:00:00 AM EST eCW1 ([facility]) E83.52 [id number] Hypercalcemia Problem 09/23/2019 12:00:00 AM EST eCW1 ([facility]) E83.52 [id number] Hypercalcemia Problem 09/23/2019 12:00:00 AM EST eCW1 ([facility]) Surgeries/Procedures Procedure Description Date Indications Data Source(s) RADIOLOGIC EXAMINATION KNEE 3 VIEWS 08/26/2020 12:00:0 0 AM EST MEDENT ([facility]) Immunization: Flublok Quadrivalent (18 years & older) 0.5mL IM (Influenza) 06/08/2020 12:00:00 AM EDT eCW1 ([facility]) Office Visit, Est Pt., Level 4 PC 10/22/2019 12:00:00 AM EDT eCW1 ([facility]) Office Visit, Est Pt., Level 2 FC 10/22/2019 12:00:00 AM EDT eCW1 ([facility]) ARTHROCENTESIS ASPIR&/INJECTION MAJOR JT/BURSA 12:00:00 AM EST MEDENT ([facility] ARTHROCENTESIS ASPIR&/INJECTION MAJOR JT/BURSA 12:00:00 AM EST MEDENT ([facility] ) ARTHROCENTESIS ASPIR&/INJECTION MAJOR JT/BURSA 020 12:00:00 AM EST MEDENT ([facility] ) ARTHROCENTESIS ASPIR&/INJECTION MAJOR JT/BURSA 12:00:00 AM EST MEDENT ([facility]) Office Visit, Est Pt., Level 3 PC 09/03/2019 12:00:00 AM EST eCW1 ([facility]) Results ID Date Data Source [id number] 09/30/2020 12:43:00 PM EST MEDENT ([facility]) Name Value Range Interpretation Code Description Data Dina rce(s) Supporting Document(s) Erythrocyte sedimentation rate by Westergren method 13 mm/hr 0-30 MEDENT ([facility]) ID Date Data Source [id number] 09/30/2020 12:43:00 PM EST MEDENT ([facility]) Name Value Range Interpretation Code Description Data Dina rce(s) Supporting Document(s) White Blood Count 7.8 10 4.0-10.0 MEDENT ([facility]) Red Blood Count 4.31 10 4.00-5.40 MEDENT ([facility]) Hematocrit 40.4 % 36.0-47.0 MEDENT ([facility]) Mean Corpuscular Volume 93.7 fl 80.0-96.0 M EDENT ([facility]) Hemoglobin 13.0 g/dL 12.0-15.5 MEDENT ([facility]) Mean Corpuscular HGB Conc 32.2 g/dL 32.0-36.5 MEDENT ([facility]) Mean Corpuscular Hemoglobin 30.2 pg 27.0-33.0 MEDENT ([facility]) Red Cell Distribution Width 12.5 % 11.5-14.5 MEDENT ([facility]) Platelet Count, Automated 238 10 150-450 MEDENT ([facility]) Nucleated Red Blood Cell % 0.0 % 0-0 MED ENT ([facility]) ID Date Data Source [id number] 09/30/2020 12:43:00 PM EST MEDENT ([facility]) Name Value Range Interpretation Code Description Data Dina rce(s) Supporting Document(s) Glucose, Fasting 85 mg/dL 70-100 MEDENT ([facility]) Blood Urea Nitrogen 17 mg/dL 7-18 MED[facility] ([facility]) Creatinine For GFR 0.83 mg/dL 0.55-1.30 MEDENT ([facility]) Glomerular Filtration Rate Laboratory test result MEDENT ([facility]) <content>Units are mL/min/1.73 m2</content>
<content></content>
<content>Chronic Kidney Disease Staging per NKF:</content>
<content></content>
<content>Stage I & II GFR >=60 Normal to Mildly Decreased</content>
<content>Stage III GFR 30- 59 Moderately Decreased</content>
<content>Stage IV GFR 15-29 Severely Decreased</content>
<content>Stage V GFR <15 Very Little GFR Left</content>
<content>ESRD GFR <15 on [employer]INE[employer]</content>
<content></content> Sodium Level 141 meq/L 136-145 MEDENT ([facility]) Potassium Serum 4.0 meq/L 3.5-5.1 MEDENT ([facility]) Chloride Level 107 meq/L 98-107 MEDENT ([facility]) Carbon Dioxide Level 27 meq/L 21-32 MEDENT ([facility]) Anion Gap 7 meq/L 8-16 MEDENT ([facility]) Ast/Sgot 10 U/L 7-37 MEDENT ([facility]) Calcium Level 10.5 mg/dL 8.8-10.2 MEDENT ([facility] Alt/SGPT 19 U/L 12-78 MEDENT ([facility]) Alkaline Phosphatase 141 U/L 45-117 MEDENT ([facility]) Bilirubin,Total 0.3 mg/dL 0.2-1.0 MEDENT ([facility]) Albumin 3.8 GM/DL 3.2-5.2 MEDENT ([facility]) Total Protein 6.4 GM/DL 6.4-8.2 MEDENT ([facility]) Albumin/Globulin Ratio 1.5 1.2-2.2 MEDENT ([facility]) ID Date Data Source [id number] 09/30/2020 12:43:00 PM EST MEDENT ([facility]) Name Value Range Interpretation Code Description Data Dina rce(s) Supporting Document(s) Prothrombin Time 13.0 s 12.5-14.3 MEDENT ([facility]) Inr 0.96 MEDENT ([facility]) THERAPUTIC HUMAN INR VALUES INDICATIONS NORMAL RANGES PROPHYLAXIS/TREATMENT OF: VENOUS THROMBOSIS 2.0-3.0 PULMONARY EMBOLISM 2.0-3.0 PREVENTION OF SYSTEMIC EMBOLISM FROM: TISSUE HEART VALVES 2.0-3.0 ACUTE MYOCARDIAL INFARCTION 2.0-3.0 VALVULAR HEART DISEASE 2.0-3.0 ATRIAL FIBRILLATION 2.0-3.0 MECHANICAL VALVES(HIGH RISK) 2.5-3.5 RECURRENT MYOCARDIAL INFARCTION 2.5-3.5 ID Date Data Source [id number] 09/30/2020 11:00:00 AM EST [facility] Name Value Range Interpretation Code Description Data Dina rce(s) Supporting Document(s) SARS coronavirus 2 RNA Not Detected [facility] [place] This lab was ordered by [facility] and reported by [facility]. ID Date Data Source [id number] 09/03/2020 03:32:00 PM EST MEDENT ([facility]) Name Value Range Interpretation Code Description Data Dina rce(s) Supporting Document(s) Laboratory test finding (navigational concept) Laboratory test result MEDENT ([facility]) ID Date Data Source [id number] 09/03/2020 01:55:00 PM EST MEDENT ([facility]) Name Value Range Interpretation Code Description Data Dina rce(s) Supporting Document(s) Erythrocyte sedimentation rate by Westergren method Laboratory test result MEDENT ([facility]) ID Date Data Source [id number] 09/03/2020 01:53:00 PM EST MEDENT ([facility]) Name Value Range Interpretation Code Description Data Dina rce(s) Supporting Document(s) EKG Laboratory test result MEDENT ([facility]) ID Date Data Source [id number] 09/03/2020 01:52:00 PM EST MEDENT ([facility]) Name Value Range Interpretation Code Description Data Dina rce(s) Supporting Document(s) Chest x-ray Laboratory test result MEDEN T ([facility]) ID Date Data Source [id number] 06/08/2020 06:07:58 AM EDT eCW1 ([facility]) Name Value Range Interpretation Code Description Data Dina rce(s) Supporting Document(s) 44.9 TOTAL 25(OH) VITAMIN D eCW1 ([facility]) ID Date Data Source LIPID PANEL (CARDIAC RISK) 06/08/2020 06:07:58 AM EDT eCW1 ( [facility]) Name Value Range Interpretation Code Description Data Dina rce(s) Supporting Document(s) Cholesterol [Moles/volume] in Serum or Plasma 221 CHOLESTEROL LEVEL eCW1 ([facility]) Cholesterol in HDL [Moles/volume] in Serum or Plasma 57 HDL CHOLESTEROL eCW1 ([facility]) Cholesterol in LDL [Mass/volume] in Serum or Plasma by calculation 141 LDL CHOLESTEROL eCW1 ([facility]) Triglyceride [Mass/volume] in Serum or Plasma by calculation 116 TRIGLYCERIDES LEVEL eCW1 ([facility]) 164 NON-HDL-C eCW1 ([facility]) 3.877 CHOLESTEROL RISK RATIO eCW1 ([facility]) ID Date Data Source Comprehensive Metabolic Profile (CMP) 06/08/2020 06:07:58 AM EDT eCW1 ([facility]) Name Value Range Interpretation Code Description Data Dina rce(s) Supporting Document(s) 78 GLUCOSE, FASTING eCW1 ([facility]) 0.77 CREATININE FOR GFR eCW1 ([facility]) 20 BLOOD UREA NITROGEN eCW1 ([facility]) 108 CHLORIDE LEVEL eCW1 ([facility]) 4.4 POTASSIUM SERUM eCW1 ([facility]) > 60.0 GLOMERULAR FILTRATION RATE eCW 1 ([facility]) 142 SODIUM LEVEL eCW1 ([facility]) 17 ALT/SGPT eCW1 ([facility]) 10.2 CALCIUM LEVEL eCW1 ([facility]) 7 AST/SGOT eCW1 ([facility]) 30 CARBON DIOXIDE LEVEL eCW1 ([facility]) 4.0 ALBUMIN eCW1 ([facility]) 6.8 TOTAL PROTEIN eCW1 ([facility]) 123 ALKALINE PHOSPHATASE eCW1 ([facility]) 0.4 BILIRUBIN,TOTAL eCW1 ([facility]) 1.4 ALBUMIN/GLOBULIN RATIO eCW1 ([facility]) ID Date Data Source FREE T4 & TSH PANEL 09/03/2019 12:00:00 AM EST eCW1 ([facility]) Name Value Range Interpretation Code Description Data Dina rce(s) Supporting Document(s) 1.01 0.76-1.46 FREE T4 eCW1 ([facility]) 1.170 0.358-3.740 THYROID STIMULATING HORM ONE eCW1 ([facility]) Procedure Social History Code Duration Value Status Description Data Source(s ) Smoking 09/16/2020 12:00:00 AM EST Never Smoker completed Never S moker eCW1 ([facility]) Smoking 08/30/2020 12:00:00 AM EST Never Smoker completed Never S moker eCW1 ([facility]) Smoking 08/30/2020 12:00:00 AM EST Never Smoker completed Never S moker eCW1 ([facility]) Smoking 08/19/2020 12:00:00 AM EST Never Smoker completed Never S moker eCW1 ([facility]) Smoking 06/08/2020 12:00:00 AM EDT Never Smoker completed Never S moker eCW1 ([facility]) Smoking 10/22/2019 12:00:00 AM EDT Never Smoker completed Never S moker eCW1 ([facility]) Smoking 10/22/2019 12:00:00 AM EDT Never Smoker completed Never S moker eCW1 ([facility]) Vital Signs ID Date Data Source UNK Name Value Range Interpretation Code Description Data Source(s) Respiratory rate 17 /min 17 /min MEDENT ( [facility] Body mass index (BMI) [Ratio] 26.0 kg/m2 26.0 k g/m2 MEDENT ([facility] ) Body weight 156.00 [lb_av] 156.00 [lb_av] MEDEN T ([facility] ) Body height 65 [in_i] 65 [in_i] MEDENT ([facility] ) 5'5" Body temperature 97.3 [degF] 97.3 [degF] MEDENT ([facility]) Heart rate 64 /min 64 /min MEDENT ([facility]) Diastolic blood pressure 80 mm[Hg] 80 mm[Hg] MEDENT ([facility]) Systolic blood pressure 132 mm[Hg] 132 mm[Hg] M EDENT ([facility]) Diastolic blood pressure 80 mm[Hg] 80 mm[Hg] eCW1 ([facility]) Systolic blood pressure 132 mm[Hg] 132 mm[Hg] e CW1 ([facility]) Body temperature 97.7 [degF] 97.7 [degF] eCW1 ( [facility]) Respiratory rate 18 /min 18 /min eCW1 ([facility]) Heart rate 89 /min 89 /min eCW1 ([facility]) Body mass index (BMI) [Ratio] 27.12 kg/m2 27.12 kg/m2 eCW1 ([facility]) Body height 64 [in_i] 64 [in_i] eCW1 ([facility]) Body weight 158 [lb_av] 158 [lb_av] eCW1 ([facility]) Body temperature 97.1 [degF] 97.1 [degF] MEDENT ([facility]) Diastolic blood pressure 80 mm[Hg] 80 mm[Hg] eCW1 ([facility]) Systolic blood pressure 112 mm[Hg] 112 mm[Hg] e CW1 ([facility]) Body temperature 96.4 [degF] 96.4 [degF] eCW1 ( [facility]) Respiratory rate 18 /min 18 /min eCW1 ([facility]) Heart rate 82 /min 82 /min eCW1 ([facility]) Body mass index (BMI) [Ratio] 27.12 kg/m2 27.12 kg/m2 eCW1 ([facility]) Body height 64 [in_i] 64 [in_i] eCW1 ([facility]) Body weight 158 [lb_av] 158 [lb_av] eCW1 ([facility]) Body mass index (BMI) [Ratio] 25.3 kg/m2 25.3 k g/m2 MEDENT ([facility]) Body weight 152.00 [lb_av] 152.00 [lb_av] MEDEN T ([facility]) Body height 65 [in_i] 65 [in_i] MEDENT ([facility]) 5'5" Body temperature 96.4 [degF] 96.4 [degF] MEDENT ([facility]) Diastolic blood pressure 80 mm[Hg] 80 mm[Hg] eCW1 ([facility]) Systolic blood pressure 130 mm[Hg] 130 mm[Hg] e CW1 ([facility]) Body temperature 98 [degF] 98 [degF] eCW1 ([facility]) Respiratory rate 18 /min 18 /min eCW1 ([facility]) Heart rate 82 /min 82 /min eCW1 ([facility]) Body mass index (BMI) [Ratio] 26.60 kg/m2 26.60 kg/m2 eCW1 ([facility]) Body height 64 [in_i] 64 [in_i] eCW1 ([facility]) Body weight 155 [lb_av] 155 [lb_av] eCW1 ([facility]) Diastolic blood pressure 74 mm[Hg] 74 mm[Hg] eCW1 ([facility]) Systolic blood pressure 122 mm[Hg] 122 mm[Hg] e CW1 ([facility]) Body temperature 98.1 [degF] 98.1 [degF] eCW1 ( [facility]) Respiratory rate 18 /min 18 /min eCW1 ([facility]) Heart rate 80 /min 80 /min eCW1 ([facility]) Body mass index (BMI) [Ratio] 27.29 kg/m2 27.29 kg/m2 W1 ([facility]) Body height 64 [in_us] 64 [in_us] eCW1 ([facility]) Body weight Measured 159.0 [lb_av] 159.0 [lb_av ] eCW1 ([facility]) Diastolic blood pressure 84 mm[Hg] 84 mm[Hg] eCW1 ([facility]) Systolic blood pressure 120 mm[Hg] 120 mm[Hg] e CW1 ([facility]) Body temperature 97.0 [degF] 97.0 [degF] eCW1 ( [facility]) Respiratory rate 18 /min 18 /min eCW1 ([facility]) Heart rate 106 /min 106 /min eCW1 ([facility]) Body mass index (BMI) [Ratio] 26.95 kg/m2 26.95 kg/m2 eCW1 ([facility]) Body height 64 [in_us] 64 [in_us] eCW1 ([facility]) Body weight Measured 157.0 [lb_av] 157.0 [lb_av ] eCW1 ([facility]) Patient Treatment Plan of Care Planned Activity Planned Date Details Description Data Source (s) duloxetine 60 MG Delayed Release Oral Capsule 09/23/2019 12:00:00 A M EST eCW1 ([facility]) Duloxetine HCl 30 MG 09/03/2019 12:00:00 AM EST eCW1 ([facility])
[2020-10-05 18:45] VITALS: BP 125/60
[2020-10-05] MEDS: ASPIRIN 81 MG ENTERIC TAB PO SCH (20:09)
[2020-10-05] MEDS: PERCOCET 5MG/325MG TAB PO PRN (20:10)
[2020-10-05] MEDS: ceFAZolin SOD 2 GM in IV 1 EA IV SCH (20:33)
[2020-10-05] MEDS ORDERED: DULoxetine 30 MG CAP (CYMBALTA) PO SCH (21:00)
[2020-10-05 22:00] VITALS: BP 124/58
[2020-10-06 02:00] VITALS: BP 115/75
[2020-10-06] MEDS: PERCOCET 5MG/325MG TAB PO PRN (05:10)
[2020-10-06] MEDS: ceFAZolin SOD 2 GM in IV 1 EA IV SCH ×2 (05:10→13:07)
[2020-10-06 05:53] LABS: HEMATOCRIT 33.7 % (36.0-47.0); HEMOGLOBIN 10.7 g/dl (12.0-15.5); MEAN CORPUSCULAR HEMOGLOBIN 29.6 pg (27.0-33.0); MEAN CORPUSCULAR HGB CONC 31.8 g/dl (32.0-36.5); MEAN CORPUSCULAR VOLUME 93.1 fl (80.0-96.0); PLATELET COUNT, AUTOMATED 213 10^3/uL (150-450); RED BLOOD COUNT 3.62 10^6/uL (4.00-5.40); WHITE BLOOD COUNT 14.5 10^3/uL (4.0-10.0)
[2020-10-06 06:00] VITALS: BP 122/62
[2020-10-06 06:16] LABS: ALBUMIN 2.9 GM/DL (3.2-5.2); ALT/SGPT 17 U/L (12-78); BILIRUBIN,TOTAL 0.3 MG/DL (0.2-1.0); BLOOD UREA NITROGEN 17 MG/DL (7-18); CALCIUM LEVEL 9.5 MG/DL (8.8-10.2); CARBON DIOXIDE LEVEL 26 MEQ/L (21-32); CHLORIDE LEVEL 108 MEQ/L (98-107); CREATININE FOR GFR 0.77 MG/DL (0.55-1.30); GLOMERULAR FILTRATION RATE > 60.0 (>45); GLUCOSE, FASTING 111 MG/DL (70-100); POTASSIUM SERUM 3.8 MEQ/L (3.5-5.1); SODIUM LEVEL 140 MEQ/L (136-145); TOTAL PROTEIN 5.8 GM/DL (6.4-8.2)
[2020-10-06] MEDS ORDERED: PERC5TAB12 PO (06:59)
[2020-10-06] MEDS ORDERED: ECOT81TA5 PO (06:59)
[2020-10-06] MEDS ORDERED: traMADol 50 MG TAB PO PRN (07:30)
[2020-10-06] MEDS ORDERED: QC A650T3 PO (07:32)
[2020-10-06] MEDS ORDERED: TRAM50TA2 PO (07:32)
[2020-10-06] MEDS: ASPIRIN 81 MG ENTERIC TAB PO SCH (08:03)
[2020-10-06] MEDS: ACETAMINOPHEN 500 MG TAB PO SCH ×2 (08:03→13:07)
[2020-10-06] MEDS ORDERED: DULoxetine 30 MG CAP (CYMBALTA) PO SCH (09:00)
== END 2020-10-06 15:50 | disposition home or self-care (01) | DRG 470 ==
LOC: M SDC 08:51 → M MS5PR 17:10 → M SDC 17:33 → M MS5PR 17:34
PROVIDERS: ADMIT Orthopaedic Surgery; ATTEND Orthopaedic Surgery
PROC: 0SRD0J9 Replacement of Left Knee Joint with Synthetic Substitute, Cemented, Open Approach (ICD-10-PCS; principal; 2020-10-05 12:05)
DX: M17.12 Unilateral primary osteoarthritis, left knee (principal); F32.9 Major depressive disorder, single episode, unspecified; K21.9 Gastro-esophageal reflux disease without esophagitis; E55.9 Vitamin D deficiency, unspecified; Z79.899 Other long term (current) drug therapy

== ENCOUNTER 2020-11-09 10:37 | Outpatient (RCR) | payer OTHER ==
[~2020-11-09 10:37] MED LIST changes: -ACETAMINOPHEN 500 MG TAB PO ONE; +ECOT81TA5 PO; -LIDOCAINE 1% MDV 20ML VIAL SQ PRN; -LR 1,000 ML IV ONE; -MIDAZOLAM INJ 2MG/2ML VIAL (J2250 PER 1MG) IV PRN; +PERC5TAB12 PO; +QC A650T3 PO; +TRAM50TA2 PO; -ceFAZolin SOD 2 GM in IV 1 EA IV ONE; -fentaNYL 100 MCG/2 ML INJECTION (J3010) IV PRN
== END 2020-11-10 ==
LOC: M PT 10:37
PROVIDERS: ATTEND Orthopaedic Surgery
DX: Z98.890 Other specified postprocedural states (principal); Z96.652 Presence of left artificial knee joint

== ENCOUNTER 2020-12-07 15:15 | Outpatient (RCR) | payer OTHER | END 2020-12-10 | LOC: M PT 15:15 | PROVIDERS: ATTEND Orthopaedic Surgery | DX: Z47.1 Aftercare following joint replacement surgery (principal); Z96.652 Presence of left artificial knee joint ==

== ENCOUNTER 2020-12-21 12:10 | Outpatient (RCR) | payer OTHER | END 2021-01-10 | LOC: M PT 12:10 | PROVIDERS: ATTEND Orthopaedic Surgery | DX: Z96.652 Presence of left artificial knee joint (principal) ==

== ENCOUNTER → 2021-06-07 | Outpatient (CLI) | payer OTHER ==
--- NOTE | 2021-06-07 17:34 | DEXAMM ---
INDICATION: HYPERPARATHYROIDISM. COMPARISON: 02/12/2019 as well as other prior exams. TECHNIQUE: Bone density was measured using dual-energy x-ray absorptiometry (DEXA). FINDINGS: AP SPINE L1-L4 BMD 0.890 g/cm2 Young Adult T-Score -2.5 Age Matched Z-Score -0.8. LT FEMUR, TOTAL BMD 0.755 g/cm2 Young Adult T-Score -2.0 Age Matched Z-Score -0.7. LT NECK BMD 0.761 g/cm2 Young Adult T-Score -2.0 Age Matched Z-Score -0.4. RT FEMUR, TOTAL BMD 0.786 g/cm2 Young Adult T-Score -1.8 Age Matched Z-Score -0.4. RT NECK BMD 0.844 g/cm2 Young Adult T-Score -1.4 Age Matched Z-Score 0.2. IMPRESSION: There is low bone density of the spine. There is low bone density of the left hip. There is low bone density of the right hip. The density of the spine has decreased 1.0% since the initial exam on 10/13/2006. The density of the spine decreased 5.3% since most recent exam on 02/12/2019. The density of the left hip has decreased 18.1% since initial exam on 10/13/2006. The density of the left hip has decreased 13.5% since most recent exam on 02/12/2019. The density of the right hip has decreased 14.1% since the initial exam on 10/13/2006. The density of the right hip has decreased 3.1% since the most recent exam on 02/12/2019. FOLLOW-UP: Recommendation for the next bone density exam: 2 years. <Electronically signed by Roel Wong > 06/07/21 [id number]
== END ==
LOC: M WHC 11:31
PROVIDERS: ATTEND Nurse Practitioner Family
DX: E21.0 Primary hyperparathyroidism (principal)

== ENCOUNTER → 2021-07-13 | Outpatient (CLI) | payer OTHER ==
[2021-07-13 13:27] LABS: BASO # 0.1 10^3/uL (0.0-0.2); EOS # 0.2 10^3/uL (0.0-0.5); EOS % 2.1 % (0.0-3.0); HEMATOCRIT 39.4 % (36.0-47.0); HEMOGLOBIN 12.6 g/dl (12.0-15.5); LYMPH # 1.2 10^3/uL (1.5-5.0); LYMPH % 17.5 % (24.0-44.0); MEAN CORPUSCULAR VOLUME 93.8 fl (80.0-96.0); MONO # 0.4 10^3/uL (0.0-0.8); MONO % 6.2 % (2.0-8.0); NEUTROPHILS # 5.1 10^3/uL (1.5-8.5); NEUTROPHILS % 72.2 % (36.0-66.0); PLATELET COUNT, AUTOMATED 224 10^3/uL (150-450); WHITE BLOOD COUNT 7.1 10^3/uL (4.0-10.0)
[2021-07-13 13:47] LABS: ALBUMIN 3.3 GM/DL (3.2-5.2); ALT/SGPT 16 U/L (12-78); BILIRUBIN,TOTAL 0.4 MG/DL (0.2-1.0); BLOOD UREA NITROGEN 15 MG/DL (7-18); CALCIUM LEVEL 9.5 MG/DL (8.8-10.2); CARBON DIOXIDE LEVEL 30 MEQ/L (21-32); CHLORIDE LEVEL 110 MEQ/L (98-107); CHOLESTEROL LEVEL 202 MG/DL (<200); CHOLESTEROL RISK RATIO 3.543 (<5); CREATININE FOR GFR 0.74 MG/DL (0.55-1.30); FREE T4 0.95 NG/DL (0.76-1.46); GLOMERULAR FILTRATION RATE > 60.0 (>45); GLUCOSE, FASTING 85 MG/DL (70-100); HDL CHOLESTEROL 57 MG/DL (>40); LDL CHOLESTEROL 126 MG/DL (<100); NON-HDL-C 145 MG/DL; POTASSIUM SERUM 4.2 MEQ/L (3.5-5.1); SODIUM LEVEL 143 MEQ/L (136-145); THYROID STIMULATING HORMONE 0.933 uIU/ML (0.358-3.740); TOTAL PROTEIN 6.2 GM/DL (6.4-8.2); TRIGLYCERIDES LEVEL 95 MG/DL (<150)
[2021-07-13 13:48] LABS: TOTAL 25(OH) VITAMIN D 29.5 NG/ML (30.0-100.0)
[2021-07-13 13:49] LABS: PTH INTACT 170.9 PG/ML (18.5-88.0)
== END ==
LOC: M PLALAB 10:10
PROVIDERS: ATTEND Physician Assistant Medical
DX: E78.2 Mixed hyperlipidemia (principal); E83.52 Hypercalcemia; K21.9 Gastro-esophageal reflux disease without esophagitis; F32.9 Major depressive disorder, single episode, unspecified

== ENCOUNTER → 2022-02-17 | Outpatient (CLI) | payer OTHER ==
[2022-02-17 13:11] LABS: BASO # 0.1 10^3/uL (0.0-0.2); BASO % 0.8 % (0.0-1.0); EOS # 0.2 10^3/uL (0.0-0.5); EOS % 2.1 % (0.0-3.0); HEMATOCRIT 42.9 % (36.0-47.0); HEMOGLOBIN 13.7 g/dl (12.0-15.5); LYMPH # 1.4 10^3/uL (1.5-5.0); LYMPH % 18.9 % (24.0-44.0); MEAN CORPUSCULAR HEMOGLOBIN 30.4 pg (27.0-33.0); MEAN CORPUSCULAR HGB CONC 31.9 g/dl (32.0-36.5); MEAN CORPUSCULAR VOLUME 95.1 fl (80.0-96.0); MONO # 0.5 10^3/uL (0.0-0.8); MONO % 7.1 % (2.0-8.0); NEUTROPHILS # 5.1 10^3/uL (1.5-8.5); NEUTROPHILS % 70.4 % (36.0-66.0); PLATELET COUNT, AUTOMATED 243 10^3/uL (150-450); RED BLOOD COUNT 4.51 10^6/uL (4.00-5.40); WHITE BLOOD COUNT 7.2 10^3/uL (4.0-10.0)
[2022-02-17 13:48] LABS: ALBUMIN 3.9 GM/DL (3.2-5.2); ALT/SGPT 23 U/L (12-78); BILIRUBIN,TOTAL 0.5 MG/DL (0.2-1.0); BLOOD UREA NITROGEN 18 MG/DL (7-18); CALCIUM LEVEL 10.6 MG/DL (8.8-10.2); CARBON DIOXIDE LEVEL 27 MEQ/L (21-32); CHLORIDE LEVEL 109 MEQ/L (98-107); FREE T4 0.96 NG/DL (0.76-1.46); GLOMERULAR FILTRATION RATE > 60.0 (>45); GLUCOSE, FASTING 97 MG/DL (70-100); POTASSIUM SERUM 4.2 MEQ/L (3.5-5.1); SODIUM LEVEL 142 MEQ/L (136-145); THYROID STIMULATING HORMONE 0.908 uIU/ML (0.358-3.740); TOTAL PROTEIN 6.8 GM/DL (6.4-8.2)
[2022-02-17 13:55] LABS: PTH INTACT 161.7 PG/ML (18.5-88.0); TOTAL 25(OH) VITAMIN D 36.8 NG/ML (30.0-100.0)
== END ==
LOC: M PLALAB 10:38
PROVIDERS: ATTEND Physician Assistant
DX: K21.9 Gastro-esophageal reflux disease without esophagitis (principal); E55.9 Vitamin D deficiency, unspecified; E21.0 Primary hyperparathyroidism; Z79.899 Other long term (current) drug therapy

== ENCOUNTER → 2022-07-25 | Outpatient (CLI) | payer OTHER | LOC: M WHC 13:53 | PROVIDERS: ATTEND Physician Assistant | DX: Z12.31 Encounter for screening mammogram for malignant neoplasm of breast (principal) ==

== ENCOUNTER → 2023-06-21 | Outpatient (CLI) | payer OTHER ==
[2023-06-21 16:02] LABS: BASO # 0.1 10^3/uL (0.0-0.2); BASO % 0.3 % (0.0-1.0); EOS # 0.1 10^3/uL (0.0-0.5); EOS % 0.3 % (0.0-3.0); HEMATOCRIT 35.6 % (36.0-47.0); HEMOGLOBIN 11.3 g/dl (12.0-15.5); LYMPH % 5.7 % (24.0-44.0); MEAN CORPUSCULAR HEMOGLOBIN 28.7 pg (27.0-33.0); MEAN CORPUSCULAR HGB CONC 31.7 g/dl (32.0-36.5); MEAN CORPUSCULAR VOLUME 90.4 fl (80.0-96.0); MONO % 9.9 % (2.0-8.0); NEUTROPHILS # 14.8 10^3/uL (1.5-8.5); PLATELET COUNT, AUTOMATED 203 10^3/uL (150-450); RED BLOOD COUNT 3.94 10^6/uL (4.00-5.40); WHITE BLOOD COUNT 17.8 10^3/uL (4.0-10.0)
[2023-06-21 16:28] LABS: FERRITIN 48.7 NG/ML (7.3-270.7); IRON (FE) 6 UG/DL (50-170); THYROID STIMULATING HORMONE 1.086 uIU/ML (0.55-4.78)
[2023-06-21 16:29] LABS: ALKALINE PHOSPHATASE 126 U/L (46-116); ALT/SGPT 15 U/L (7.0-40); AST/SGOT 9 U/L (<34); BILIRUBIN,TOTAL 0.5 MG/DL (0.3-1.2); BLOOD UREA NITROGEN 16 MG/DL (9-23); CALCIUM LEVEL 10.1 MG/DL (8.3-10.6); CARBON DIOXIDE LEVEL 27 MMOL/L (20-31); CHLORIDE LEVEL 105 MMOL/L (98-107); CHOLESTEROL LEVEL 152 MG/DL (<200); CHOLESTEROL RISK RATIO 3.26 (<5); CREATININE FOR GFR 0.87 MG/DL (0.55-1.30); GLOMERULAR FILTRATION RATE > 60.0 (>45); GLUCOSE, FASTING 107 MG/DL (74-106); HDL CHOLESTEROL 46.6 MG/DL (>40); LDL CHOLESTEROL 84.2 MG/DL (<100); NON-HDL-C 105.4 MG/DL; POTASSIUM SERUM 3.8 MMOL/L (3.5-5.1); PTH INTACT 119.1 PG/ML (18.5-88.0); SODIUM LEVEL 139 MMOL/L (136-145); TOTAL 25(OH) VITAMIN D 25.5 NG/ML (20.0-100.0); TOTAL PROTEIN 5.9 G/DL (5.7-8.2); TRIGLYCERIDES LEVEL 106 MG/DL (<150)
[2023-06-21 16:30] LABS: FREE T4 0.95 NG/DL (0.89-1.76)
[2023-06-21 16:38] LABS: MONO # 1.8 10^3/uL (0.0-0.8)
[2023-06-21 16:52] LABS: APPEARANCE, URINE CLOUDY (CLEAR); BACTERIA, URINE AUTO 1+ (NEGATIVE); BILIRUBIN, URINE AUTO NEGATIVE (NEGATIVE); BLOOD, URINE BLOOD 2+ (NEGATIVE); COLOR, URINE YELLOW (YELLOW); GLUCOSE, URINE (UA) AUTO NEGATIVE (NEGATIVE); KETONE, URINE AUTO NEGATIVE (NEGATIVE); LEUKOCYTE ESTERASE, URINE AUTO 3+ (NEGATIVE); MUCUS, URINE SMALL (NEGATIVE); NITRITE, URINE AUTO NEGATIVE (NEGATIVE); PROTEIN, URINE AUTO 1+ mg/dL (NEGATIVE); RBC, URINE AUTO 7 /HPF (0-3); SPECIFIC GRAVITY URINE AUTO 1.006 (1.002-1.035); SQUAMOUS EPITHELIAL CELL UR AU 1 /HPF (0-6); UROBILINOGEN, URINE AUTO 0.2 mg/dL (0.0-2.0); WBC, URINE AUTO TNTC /HPF (0-3)
== END ==
LOC: M PLALAB 12:09
PROVIDERS: ATTEND Physician Assistant Medical
DX: E78.2 Mixed hyperlipidemia (principal); R30.0 Dysuria; K21.9 Gastro-esophageal reflux disease without esophagitis; F32.9 Major depressive disorder, single episode, unspecified; E61.1 Iron deficiency; Z79.899 Other long term (current) drug therapy

== ENCOUNTER → 2023-08-16 | Outpatient (CLI) | payer OTHER | LOC: M WHC 10:00 | PROVIDERS: ATTEND Physician Assistant Medical | DX: Z12.31 Encounter for screening mammogram for malignant neoplasm of breast (principal); M85.89 Other specified disorders of bone density and structure, multiple sites ==

== ENCOUNTER 2023-09-06 10:28 | Day surgery (SDC) | payer OTHER ==
[~2023-09-06] VITALS: Ht 162.6 cm; Wt 67.1 kg
[~2023-09-06 10:28] MED LIST changes: +CYAN500T14 PO; +FERR325T81 PO; +LIDOCAINE 2% 100MG/5ML SDV (FOR ANES.) As Ordered ONE; +NS 1,000 ML IV ONE; +[UNRECOGNIZED DRUG - CODE] PO; +fentaNYL 100 MCG/2 ML INJECTION As Ordered ONE; +propofoL 500 MG/50 ML VIAL As Ordered ONE
[2023-09-06 12:17] VITALS: BP 151/68; TEMP 97.5; O2SAT 100
== END 2023-09-06 12:10 | disposition home or self-care (01) ==
LOC: M OPP 10:28
PROVIDERS: ATTEND Surgery
DX: Z12.11 Encounter for screening for malignant neoplasm of colon (principal); K57.30 Diverticulosis of large intestine without perforation or abscess without bleeding; K44.9 Diaphragmatic hernia without obstruction or gangrene; K31.89 Other diseases of stomach and duodenum; K29.80 Duodenitis without bleeding; B96.81 Helicobacter pylori [H. pylori] as the cause of diseases classified elsewhere; Z79.1 Long term (current) use of non-steroidal anti-inflammatories (NSAID); Z79.899 Other long term (current) drug therapy
CPT/HCPCS: 43239; 45378; 88305; J3010

== ENCOUNTER → 2023-10-30 | Outpatient (CLI) | payer OTHER ==
[~2023-10-30] MED LIST changes: -LIDOCAINE 2% 100MG/5ML SDV (FOR ANES.) As Ordered ONE; -NS 1,000 ML IV ONE; -fentaNYL 100 MCG/2 ML INJECTION As Ordered ONE; -propofoL 500 MG/50 ML VIAL As Ordered ONE
[2023-10-30 16:06] LABS: BASO # 0.1 10^3/uL (0.0-0.2); BASO % 0.8 % (0.0-1.0); EOS # 0.1 10^3/uL (0.0-0.5); EOS % 1.8 % (0.0-3.0); HEMATOCRIT 42.3 % (36.0-47.0); HEMOGLOBIN 13.7 g/dl (12.0-15.5); LYMPH # 1.8 10^3/uL (1.5-5.0); LYMPH % 23.8 % (24.0-44.0); MEAN CORPUSCULAR HEMOGLOBIN 30.6 pg (27.0-33.0); MEAN CORPUSCULAR HGB CONC 32.4 g/dl (32.0-36.5); MEAN CORPUSCULAR VOLUME 94.4 fl (80.0-96.0); MONO # 0.6 10^3/uL (0.0-0.8); MONO % 8.2 % (2.0-8.0); NEUTROPHILS # 4.9 10^3/uL (1.5-8.5); NEUTROPHILS % 64.6 % (36.0-66.0); PLATELET COUNT, AUTOMATED 236 10^3/uL (150-450); RED BLOOD COUNT 4.48 10^6/uL (4.00-5.40); WHITE BLOOD COUNT 7.6 10^3/uL (4.0-10.0)
[2023-10-30 16:41] LABS: IRON (FE) 74 UG/DL (50-170)
[2023-10-30 16:42] LABS: ALBUMIN 3.6 G/DL (3.2-5.2); ALKALINE PHOSPHATASE 110 U/L (46-116); ALT/SGPT 27 U/L (7.0-40); AST/SGOT < 8 U/L (<34); BILIRUBIN,TOTAL 0.4 MG/DL (0.3-1.2); BLOOD UREA NITROGEN 16 MG/DL (9-23); CALCIUM LEVEL 10.5 MG/DL (8.3-10.6); CARBON DIOXIDE LEVEL 30 MMOL/L (20-31); CHLORIDE LEVEL 109 MMOL/L (98-107); CREATININE FOR GFR 0.76 MG/DL (0.55-1.30); GLOMERULAR FILTRATION RATE > 60.0 (>39); GLUCOSE, FASTING 74 MG/DL (74-106); MAGNESIUM LEVEL 2.2 MG/DL (1.8-2.4); POTASSIUM SERUM 4.1 MMOL/L (3.5-5.1); SODIUM LEVEL 141 MMOL/L (136-145); TOTAL PROTEIN 6.2 G/DL (5.7-8.2)
[2023-10-30 16:43] LABS: FREE T4 0.97 NG/DL (0.89-1.76); THYROID STIMULATING HORMONE 0.987 uIU/ML (0.55-4.78)
[2023-10-30 16:44] LABS: FERRITIN 8.1 NG/ML (7.3-270.7); TOTAL 25(OH) VITAMIN D 28.2 NG/ML (20.0-100.0)
[2023-10-30 16:45] LABS: VITAMIN B12 LEVEL > 2000 PG/ML (211-911)
== END ==
LOC: M LAB 14:47
PROVIDERS: ATTEND Physician Assistant Medical
DX: K21.9 Gastro-esophageal reflux disease without esophagitis (principal); R71.0 Precipitous drop in hematocrit; F32.9 Major depressive disorder, single episode, unspecified; R41.89 Other symptoms and signs involving cognitive functions and awareness; Z79.899 Other long term (current) drug therapy

== ENCOUNTER → 2024-06-18 | Outpatient (CLI) | payer OTHER ==
[2024-06-18 15:43] LABS: BASO # 0.1 10^3/uL (0.0-0.2); BASO % 0.7 % (0.0-1.0); EOS # 0.2 10^3/uL (0.0-0.5); EOS % 1.8 % (0.0-3.0); HEMATOCRIT 41.9 % (36.0-47.0); HEMOGLOBIN 13.5 g/dl (12.0-15.5); LYMPH # 1.9 10^3/uL (1.5-5.0); LYMPH % 23.7 % (24.0-44.0); MEAN CORPUSCULAR HEMOGLOBIN 31.2 pg (27.0-33.0); MEAN CORPUSCULAR HGB CONC 32.2 g/dl (32.0-36.5); MEAN CORPUSCULAR VOLUME 96.8 fl (80.0-96.0); MONO # 0.6 10^3/uL (0.0-0.8); MONO % 7.4 % (2.0-8.0); NEUTROPHILS # 5.4 10^3/uL (1.5-8.5); NEUTROPHILS % 65.9 % (36.0-66.0); PLATELET COUNT, AUTOMATED 251 10^3/uL (150-450); RED BLOOD COUNT 4.33 10^6/uL (4.00-5.40); WHITE BLOOD COUNT 8.2 10^3/uL (4.0-10.0)
[2024-06-18 16:03] LABS: ALBUMIN 3.8 G/DL (3.2-5.2); ALKALINE PHOSPHATASE 84 U/L (35-104); ALT/SGPT 17 U/L (7.0-40); AST/SGOT < 8 U/L (<34); BILIRUBIN,TOTAL 0.5 MG/DL (0.3-1.2); BLOOD UREA NITROGEN 15 MG/DL (9-23); CALCIUM LEVEL 11.4 MG/DL (8.3-10.6); CARBON DIOXIDE LEVEL 30 MMOL/L (20-31); CHLORIDE LEVEL 106 MMOL/L (98-107); CHOLESTEROL LEVEL 264 MG/DL (<200); CHOLESTEROL RISK RATIO 4.13 (<5); CREATININE FOR GFR 0.75 MG/DL (0.55-1.30); GLOMERULAR FILTRATION RATE > 60.0 (>39); GLUCOSE, FASTING 76 MG/DL (74-106); HDL CHOLESTEROL 63.8 MG/DL (>40); LDL CHOLESTEROL 167.8 MG/DL (<100); NON-HDL-C 200.2 MG/DL; POTASSIUM SERUM 4.6 MMOL/L (3.5-5.1); PTH INTACT 129.3 PG/ML (18.5-88.0); SODIUM LEVEL 138 MMOL/L (136-145); TOTAL PROTEIN 6.8 G/DL (5.7-8.2); TRIGLYCERIDES LEVEL 162 MG/DL (<150)
[2024-06-18 16:04] LABS: FERRITIN 17.9 NG/ML (7.3-270.7); FREE T4 1.14 NG/DL (0.89-1.76); THYROID STIMULATING HORMONE 1.067 uIU/ML (0.55-4.78)
[2024-06-18 16:05] LABS: TOTAL 25(OH) VITAMIN D 25.6 NG/ML (20.0-100.0)
== END ==
LOC: M PLALAB 12:30
PROVIDERS: ATTEND Physician Assistant Medical
DX: E83.52 Hypercalcemia (principal); F32.9 Major depressive disorder, single episode, unspecified; E78.2 Mixed hyperlipidemia; K21.9 Gastro-esophageal reflux disease without esophagitis

== ENCOUNTER → 2024-12-25 | Outpatient (CLI) | payer MEDICARE ==
[2024-12-25 11:38] LABS: ALBUMIN 3.7 G/DL (3.2-5.2); BILIRUBIN,TOTAL 0.4 MG/DL (0.3-1.2); CALCIUM LEVEL 10.1 MG/DL (8.3-10.6); CREATININE FOR GFR 0.81 MG/DL (0.55-1.30); GLOMERULAR FILTRATION RATE 77.6 (>39); HDL CHOLESTEROL 63.7 MG/DL (>40); LDL CHOLESTEROL 174.5 MG/DL (<100); NON-HDL-C 191.3 MG/DL; POTASSIUM SERUM 4.3 MMOL/L (3.5-5.1); PTH INTACT 209.1 PG/ML (18.5-88.0); TOTAL PROTEIN 6.4 G/DL (5.7-8.2)
== END ==
LOC: M PLALAB 09:02
PROVIDERS: ATTEND Physician Assistant Medical
DX: E78.2 Mixed hyperlipidemia (principal); E21.0 Primary hyperparathyroidism

== ENCOUNTER → 2025-06-29 | Outpatient (CLI) | payer MEDICARE ==
[2025-06-29 15:28] LABS: ALT/SGPT 13.0 U/L (7.0-40); AST/SGOT 13.0 U/L (<34); CALCIUM LEVEL 10.3 MG/DL (8.3-10.6); CARBON DIOXIDE LEVEL 28.0 MMOL/L (20-31); CHLORIDE LEVEL 104.0 MMOL/L (98-107); CREATININE FOR GFR 0.8 MG/DL (0.55-1.30); GLOMERULAR FILTRATION RATE 78.7 (>39); POTASSIUM SERUM 4.3 MMOL/L (3.5-5.1); PTH INTACT 196.3 PG/ML (18.5-88.0); SODIUM LEVEL 141.0 MMOL/L (136-145)
[2025-06-29 15:29] LABS: BASO # 0.1 10^3/uL (0.0-0.2); BASO % 1.0 % (0.0-1.0); EOS # 0.2 10^3/uL (0.0-0.5); EOS % 2.4 % (0.0-3.0); LYMPH # 1.5 10^3/uL (1.5-5.0); LYMPH % 16.6 % (24.0-44.0); MONO # 0.7 10^3/uL (0.0-0.8); MONO % 7.6 % (2.0-8.0); NEUTROPHILS # 6.5 10^3/uL (1.5-8.5); NEUTROPHILS % 70.3 % (36.0-66.0); PLATELET COUNT, AUTOMATED 240 10^3/uL (150-450)
[2025-06-29 15:32] LABS: TOTAL 25(OH) VITAMIN D 21.4 NG/ML (20.0-100.0)
== END ==
LOC: M PLALAB 10:34
PROVIDERS: ATTEND Physician Assistant Medical
DX: K21.9 Gastro-esophageal reflux disease without esophagitis (principal); E21.0 Primary hyperparathyroidism; E55.9 Vitamin D deficiency, unspecified; Z12.11 Encounter for screening for malignant neoplasm of colon

== ENCOUNTER → 2025-06-30 | Outpatient (CLI) | payer MEDICARE | LOC: M WHC 09:46 | PROVIDERS: ATTEND Physician Assistant Medical | DX: Z12.31 Encounter for screening mammogram for malignant neoplasm of breast (principal) ==

== ENCOUNTER → 2025-06-30 | Outpatient (CLI) | payer MEDICARE ==
[~2025-06-30] MED LIST changes: +ISOVUE-370 76% 100 ML VIAL As Ordered ONE
== END ==
LOC: M RAD 07:00
PROVIDERS: ATTEND Physician Assistant Medical
DX: R10.31 Right lower quadrant pain (principal); K40.20 Bilateral inguinal hernia, without obstruction or gangrene, not specified as recurrent; M16.11 Unilateral primary osteoarthritis, right hip; Z12.31 Encounter for screening mammogram for malignant neoplasm of breast
CPT/HCPCS: 74177; 77063; 77067; Q9967